=== PATIENT | male | born 1935 | race Caucasian/White ===

== ENCOUNTER 2017-02-10 16:25 | Emergency (ER) | payer MEDICARE, OTHER ==
[2017-02-10 16:52] VITALS: BP 161/92; PULSE 92; RESP 20; TEMP 97.5; O2SAT 98
[2017-02-10 16:55] LABS: BLOOD, URINE LARGE (NEG); GLUCOSE,URINE NEG (NEG); KETONE, URINE NEG (NEG); NITRITE,URINE NEG (NEG)
[2017-02-10] MEDS ORDERED: TAMS0.4C4 PO (16:56)
[2017-02-10] MEDS ORDERED: OMEP20TA PO (16:56)
[2017-02-10 17:02] LABS: POTASSIUM 3.3 MEQ/L (3.5-5.1)
[2017-02-10 17:05] LABS: BICARBONATE 28.8 MEQ/L (21.0-32.0)
[2017-02-10 17:10] LABS: METHOD OF COLLECTION CLEAN CATCH; RBC, URINE 100-200 /hpf (0-3); URINE COLOR YELLOW (YELLW/STRAW)
[2017-02-10 17:11] LABS: COMMENT (UR) CULT NOT INDICATED; CULTURE IF INDICATED CULT NOT INDICATED; SQUAMOUS EPITHELIAL CELL URINE 0-5 /hpf (0-5)
--- NOTE | 2017-02-10 17:39 | PD ---
HPI Chief Complaint: Complaint Time Seen by Provider: 16:30 Travel History International Travel<30 days: No Contact w/Intl Traveler<30days: No Traveled to known affect area: No History of Present Illness HPI The patient is a 81 year-old male who presents to the emergency department for urinary retention. The patient states he last used the bathroom and passed urine this morning at 9 AM. The patient had an outpatient procedure earlier today by his currency examiner, Dr. Combs, who performed an endoscopy. The patient states he has been unable to urinate since this morning , does have a history of benign prostatic hypertrophy and was recently placed on tamsulosin. The patient complains of lower abdominal pain and urge with inability to urinate. He denies any dysuria or hematuria. The patient denies any fever, chills, or sweats. He denies any associated nausea or vomiting. The symptoms are moderate, possibly exacerbated by a large prostate and endoscopy earlier today, and there are no current alleviating factors. PFSH Past Medical History GERD: Yes Past Surgical History Other Surgery: Yes (ANKLE, POLYPS) Social History Alcohol Use: No Tobacco Use: No Substance Use: No Allergies-Medications (Allergen,Severity, Reaction): Coded Allergies: No Known Allergies (Unverified , 02/10/17) Reported Meds & Prescriptions Reported Meds & Active Scripts Active Reported Tamsulosin (Tamsulosin HCl) 0.4 Mg Cap 0.4 Mg PO HS Omeprazole 20 Mg Tab 20 Mg PO DAILY Review of Systems Except as stated in HPI: all other systems reviewed are Neg Cardiovascular: No: Chest Pain or Discomfort Respiratory: No: Shortness of Breath Gastrointestinal: Positive: Abdominal Pain, No: Nausea, Vomiting Genitourinary: Positive: Pelvic Pain, Other (as noted in the history of present illness) Physical Exam Narrative GENERAL: Awake, alert, very pleasant 81-year-old male who appears his stated age and is in no acute respiratory distress. SKIN: Focused skin assessment warm/dry. HEAD: Atraumatic. Normocephalic. EYES: No injection or drainage. ENT: No nasal bleeding or discharge. Mucous membranes pink and moist. NECK: Trachea midline. No JVD. CARDIOVASCULAR: Regular rate and rhythm. No murmur appreciated. RESPIRATORY: No accessory muscle use. Clear to auscultation. Breath sounds equal bilaterally. GASTROINTESTINAL: Abdomen slightly distended bladder just inferior to the umbilicus. MUSCULOSKELETAL: No obvious deformities. No clubbing. No cyanosis. No edema. NEUROLOGICAL: Awake and alert. No obvious cranial nerve deficits. Motor grossly within normal limits. Normal speech. PSYCHIATRIC: Appropriate mood and affect; insight and judgment normal. Data Data Last Documented VS Vital Signs Date Time Temp Pulse Resp B/P (MAP) Pulse Ox O2 Delivery O2 Flow Rate FiO2 02/10/17 16:52 97.5 92 20 161/92 (115) 98 Orders Orders Urinalysis - C+S If Indicated (02/10/17 16:36) Basic Metabolic Panel (Bmp) (02/10/17 16:36) Urinary Catheter Insert/Apply (02/10/17 16:36) Cath, Leg Strap Ea (02/10/17 17:32) Bag, Leg 32oz Sterile Large Ea (02/10/17 17:32) Labs Laboratory Tests Test 02/10/17 16:40 02/10/17 16:45 Urine Collection Type CLEAN CATCH Urine Color YELLOW Urine Turbidity CLEAR Urine pH 6.0 Urine Specific [place] 1.008 Urine Protein NEG mg/dL Urine Glucose (UA) NEG mg/dL Urine Ketones NEG mg/dL Urine Occult Blood LARGE Urine Nitrite NEG Urine Bilirubin NEG Urine Leukocyte Esterase NEG Urine RBC 100-200 /hpf Urine WBC 6-8 /hpf Urine Squamous Epithelial Cells 0-5 /hpf Microscopic Urinalysis Comment CULT NOT INDICATED Urine Collection Time 16:40 Blood Urea Nitrogen 15 MG/DL Creatinine 0.77 MG/DL Random Glucose 98 MG/DL Calcium Level 8.7 MG/DL Sodium Level 140 MEQ/L Potassium Level 3.3 MEQ/L Chloride Level 104 MEQ/L Carbon Dioxide Level 28.8 MEQ/L Anion Gap 7 MEQ/L Estimat Glomerular Filtration Rate 97 ML/MIN MDM Medical Decision Making Medical Screen Exam Complete: Yes Emergency Medical Condition: Yes Medical Record Reviewed: Yes Interpretation(s) Laboratory Tests Test 02/10/17 16:40 02/10/17 16:45 Urine Collection Type CLEAN CATCH Urine Color YELLOW Urine Turbidity CLEAR Urine pH 6.0 Urine Specific [place] 1.008 Urine Protein NEG mg/dL Urine Glucose (UA) NEG mg/dL Urine Ketones NEG mg/dL Urine Occult Blood LARGE Urine Nitrite NEG Urine Bilirubin NEG Urine Leukocyte Esterase NEG Urine RBC 100-200 /hpf Urine WBC 6-8 /hpf Urine Squamous Epithelial Cells 0-5 /hpf Microscopic Urinalysis Comment CULT NOT INDICATED Urine Collection Time 16:40 Blood Urea Nitrogen 15 MG/DL Creatinine 0.77 MG/DL Random Glucose 98 MG/DL Calcium Level 8.7 MG/DL Sodium Level 140 MEQ/L Potassium Level 3.3 MEQ/L Chloride Level 104 MEQ/L Carbon Dioxide Level 28.8 MEQ/L Anion Gap 7 MEQ/L Estimat Glomerular Filtration Rate 97 ML/MIN Differential Diagnosis Differential diagnosis includes urinary retention, anesthesia side effect, benign prostatic hypertrophy, urethral stricture, UTI, acute renal failure. Narrative Course A bedside ultrasound was performed which did reveal a distended urinary bladder. Therefore, a Page catheter was placed and the patient had over 800 cc of output. UA was sent to lab which revealed 100-200 RBCs and 68 WBCs, most likely secondary to traumatic hematuria. Page catheter insertion, doubt infection. Creatinine is normal. The patient be discharged home on a leg bag with a Page catheter and is advised to follow-up with his urologist, Dr. [place]. The patient is already currently taking tamsulosin. The patient was reassessed at 5:30 PM, his symptoms had significantly improved after Page catheter placement. Patient is stable for outpatient follow-up. Diagnosis Primary Impression: Urinary retention Patient Instructions: General Instructions Additional Instructions: Please provide the patient a copy of his BMP and UA results at discharge. Page catheter with leg bag as directed. Follow-up with your urologist, call your urologist in the morning for an appointment. Return if symptoms worsen or progress. Med/Other Pt SpecificInfo: No Change to Meds Disposition: 01 DISCHARGE HOME Condition: Stable James Steen MD Feb 10, 2017 17:39
[2017-02-10 17:57] VITALS: BP 158/78
[2017-02-10] MEDS ORDERED: ASPI81CH CHEW (18:29)
== END 2017-02-10 18:10 | disposition home or self-care (01) ==
LOC: PHED 16:25
DX: R33.9 Retention of urine, unspecified (principal); K21.9 Gastro-esophageal reflux disease without esophagitis
CPT/HCPCS: 51702; 80048; 81001

== ENCOUNTER 2017-02-10 18:17 | Inpatient (IN) | payer MEDICARE ==
[2017-02-10] VITALS (10 sets, daily range): BP systolic 158–181; BP diastolic 79–91; PULSE 56–63; RESP 20–21; TEMP 97.8–98.2; O2SAT 94–99
[~2017-02-10 18:17] MED LIST: OMEP20TA PO; TAMS0.4C4 PO
[2017-02-10] MEDS ORDERED: ASPI81CH CHEW (18:29)
[2017-02-10] MEDS ORDERED: SODIUM CHLOR 0.9% 1000 ML INJ 1,000 ML IV ONE (18:31)
--- NOTE | 2017-02-10 18:49 | PD ---
HPI Chief Complaint: Neuro Symptoms/ Deficits Time Seen by Provider: 18:24 Travel History International Travel<30 days: No Contact w/Intl Traveler<30days: No Traveled to known affect area: No History of Present Illness HPI The patient is a 81 year-old male who presents to the emergency department via private vehicle for altered mental status. The patient was just recently seen in the emergency department for urinary obstruction and had a Page catheter placed, was discharged home alert and oriented 3. The states the patient got in the car and while they were driving home he suddenly became confused. The states that the patient cannot recall why he was in the emergency department are why he had a Page catheter placed. The brought the patient back to the emergency department. Upon arrival he keeps asking "am I having a stroke ", however, denies any other physical complaints except for his memory. The patient denies any weakness or numbness of the upper or lower extremities. He denies any dysarthria. The patient does have a history of GERD and benign prostatic hypertrophy. The patient did undergo an endoscopy earlier today by Dr. Combs. The patient denies any chest pain, shortness breath, nausea, vomiting, or abdominal pain. The patient was discharged at 6 PM, onset of symptoms were just after 6 PM. PFSH Past Medical History GERD: Yes Past Surgical History Other Surgery: Yes (ANKLE, POLYPS, ENDOSCOPY) Social History Alcohol Use: No Tobacco Use: No Substance Use: No Allergies-Medications (Allergen,Severity, Reaction): Coded Allergies: No Known Allergies (Unverified , 02/10/17) Reported Meds & Prescriptions Reported Meds & Active Scripts Active Reported Aspirin 81 Mg Chew 81 Mg CHEW DAILY Tamsulosin (Tamsulosin HCl) 0.4 Mg Cap 0.4 Mg PO HS Omeprazole 20 Mg Tab 20 Mg PO DAILY Review of Systems ROS Limitations: Altered Mental Status Except as stated in HPI: all other systems reviewed are Neg HENT: No: Lightheadedness Cardiovascular: No: Chest Pain or Discomfort Respiratory: No: Shortness of Breath Gastrointestinal: No: Nausea, Vomiting, Abdominal Pain Genitourinary: Positive: Other (urinary retention, status post Page catheter insertion earlier today) Musculoskeletal: No: Weakness Neurologic: Positive: Change in Mentation, No: Weakness, Headache, Slurred Speech, Paresthesia, Sensory Disturbance Physical Exam Narrative GENERAL: Awake, alert, pleasant 81-year-old male appears his stated age and is in no acute respiratory distress. SKIN: Focused skin assessment warm/dry. HEAD: Atraumatic. Normocephalic. EYES: Pupils equal and round. Pupils are 3 mm bilateral and reactive. EOMs are intact. He is able to see fingers at a distance of 2 feet without difficulty. ENT: No nasal bleeding or discharge. Mucous membranes pink and moist. NECK: Trachea midline. No JVD. CARDIOVASCULAR: Regular rate and rhythm. No murmur appreciated. RESPIRATORY: No accessory muscle use. Clear to auscultation. Breath sounds equal bilaterally. GASTROINTESTINAL: Abdomen soft, non-tender, nondistended. Page catheter with leg bag in place. MUSCULOSKELETAL: No obvious deformities. No clubbing. No cyanosis. No edema. NEUROLOGICAL: Awake and alert. No obvious cranial nerve deficits. Motor grossly within normal limits. Normal speech. No drift of the upper or lower extremities. Sensation is symmetric on the face, arms, and legs. Finger to nose is normal. Omho-fr-ntpe is normal. Patient is oriented to name and date of but does not know the month, year, or animal cytologist. The patient is able to tell me the name of his but does not know her date of or the anniversary date. PSYCHIATRIC: Appropriate mood and affect; insight and judgment normal. Data Data Last Documented VS Vital Signs Date Time Temp Pulse Resp B/P (MAP) Pulse Ox O2 Delivery O2 Flow Rate FiO2 02/10/17 19:32 56 20 179/79 (112) 99 2.00 02/10/17 19:02 Nasal Cannula 02/10/17 18:23 97.8 Orders Orders Cath For Specimen (02/10/17 18:31) Neuro Checks Q2HX12,Q4H (02/10/17 18:31) Nursing Bedside Swallow Assess .ONCE (02/10/17 18:31) Activity Bed Rest (02/10/17 18:31) Diet Npo (02/10/17 Dinner) Prothrombin Time / Inr (Pt) (02/10/17 18:31) Act Partial Throm Time (Ptt) (02/10/17 18:31) Complete Blood Count With Diff (02/10/17 18:31) Basic Metabolic Panel (Bmp) (02/10/17 18:31) Fibrinogen (02/10/17 18:31) Creatine Kinase (Cpk) (02/10/17 18:31) Troponin I (02/10/17 18:31) Ua Includes Microscopic (02/10/17 18:31) Drug Screen, Random Urine (02/10/17 18:31) Type And Screen (02/10/17 18:31) Ct Brain W/O Iv Contrast(Rout) (02/10/17 ) Cta Brain W Iv Contrast W 3d (02/10/17 18:31) Cta Neck W Iv Contrast W 3d (02/10/17 18:31) Chest, Single Ap (02/10/17 ) Electrocardiogram (02/10/17 ) Consult Neurology (02/10/17 18:31) Sodium Chlor 0.9% 1000 Ml Inj (Ns 1000 M (02/10/17 18:31) Blood Glucose (02/10/17 18:31) Ecg Monitoring (02/10/17 18:31) Iv Access Insert/Monitor (02/10/17 18:31) NPO (02/10/17 18:31) Oximetry (02/10/17 18:31) Oxygen Administration (02/10/17 18:31) Resp Oxygen Seven C Titrat 1-4 L (02/10/17 18:31) (Hub Use Only)Inp Phy Cons/Ref (02/10/17 ) Iodixanol 320 Inj (Rad Ct) (Visipaque 32 (02/10/17 19:01) ^ Call Pharmacy (02/10/17 19:19) Nih Stroke Scale - Nihss .ONCE (02/10/17 19:19) Urinary Catheter Insert/Apply (02/10/17 19:19) Anticoagulant Alert (02/10/17 19:19) ^ Post Infusion Restrictions (02/10/17 19:19) ^ Medication Alert (02/10/17 19:19) Vital Signs (Adult) .As directed (02/10/17 19:19) Notify Dr: Blood Pressure (02/10/17 19:19) ^ Medication Alert (02/10/17 19:19) Alteplase Bolus (Activase Bolus) (02/10/17 19:30) Alteplase Drip (Activase Drip) (02/10/17 19:30) Sodium Chloride 0.9% Inj (Ns Inj) (02/10/17 19:30) Misc Nursing Information (02/10/17 19:30) Resp Oxygen Seven C Titrat 1-4 L (02/10/17 ) Ct Brain W/O Iv Contrast(Rout) (02/11/17 ) Admit Order (Ed Use Only) (02/10/17 ) Business Continuity Global Director / Telemetry CASEY.Q8H (02/10/17 19:37) Diet Npo (02/11/17 Breakfast) Activity Bed Rest (02/10/17 19:37) Labs Laboratory Tests Test 02/10/17 18:30 02/10/17 19:05 White Blood Count 5.6 TH/MM3 Red Blood Count 5.12 MIL/MM3 Hemoglobin 15.4 GM/DL Hematocrit 47.0 % Mean Corpuscular Volume 91.7 FL Mean Corpuscular Hemoglobin 30.2 PG Mean Corpuscular Hemoglobin Concent 32.9 % Red Cell Distribution Width 12.4 % Platelet Count 226 TH/MM3 Mean Platelet Volume 7.4 FL Neutrophils (%) (Auto) 67.8 % Lymphocytes (%) (Auto) 21.9 % Monocytes (%) (Auto) 7.7 % Eosinophils (%) (Auto) 1.8 % Basophils (%) (Auto) 0.8 % Neutrophils # (Auto) 3.9 TH/MM3 Lymphocytes # (Auto) 1.2 TH/MM3 Monocytes # (Auto) 0.4 TH/MM3 Eosinophils # (Auto) 0.1 TH/MM3 Basophils # (Auto) 0.0 TH/MM3 CBC Comment DIFF FINAL Differential Comment Erythrocyte Sedimentation Rate 1 mm/hr Prothrombin Time 10.8 SEC Prothromb Time International Ratio 1.0 RATIO Activated Partial Thromboplast Time 30.3 SEC Fibrinogen 280 mg/dL Blood Urea Nitrogen 14 MG/DL Creatinine 0.70 MG/DL Random Glucose 92 MG/DL Calcium Level 8.8 MG/DL Sodium Level 139 MEQ/L Potassium Level 4.0 MEQ/L Chloride Level 104 MEQ/L Carbon Dioxide Level 27.9 MEQ/L Anion Gap 7 MEQ/L Estimat Glomerular Filtration Rate 109 ML/MIN Total Creatine Kinase 213 U/L Troponin I LESS THAN 0.02 NG/ML Urine Color NONE Urine Turbidity CLEAR Urine pH 7.5 Urine Specific [place] 1.014 Urine Protein NEG mg/dL Urine Glucose (UA) NEG mg/dL Urine Ketones NEG mg/dL Urine Occult Blood LARGE Urine Nitrite NEG Urine Bilirubin NEG Urine Leukocyte Esterase NEG Urine RBC 4-9 /hpf Urine Squamous Epithelial Cells 0-5 /hpf Urine Opiates Screen NEG Urine Barbiturates Screen NEG Urine Amphetamines Screen NEG Urine Benzodiazepines Screen NEG Urine Cocaine Screen NEG Urine Cannabinoids Screen NEG MDM Medical Decision Making Medical Screen Exam Complete: Yes Emergency Medical Condition: Yes Medical Record Reviewed: Yes Interpretation(s) EKG reveals sinus bradycardia with sinus arrhythmia. Last Impressions Head CTA 02/10/17 1831 Signed Impressions: Service Date/Time: Friday, February 10, 2017 18:34 - CONCLUSION: Unremarkable study. Pedro Peralta MD Head CT 02/10/17 0000 Signed Impressions: Service Date/Time: Friday, February 10, 2017 18:34 - CONCLUSION: Unremarkable study. Pedro Peralta MD Laboratory Tests Test 02/10/17 18:30 02/10/17 19:05 White Blood Count 5.6 TH/MM3 Red Blood Count 5.12 MIL/MM3 Hemoglobin 15.4 GM/DL Hematocrit 47.0 % Mean Corpuscular Volume 91.7 FL Mean Corpuscular Hemoglobin 30.2 PG Mean Corpuscular Hemoglobin Concent 32.9 % Red Cell Distribution Width 12.4 % Platelet Count 226 TH/MM3 Mean Platelet Volume 7.4 FL Neutrophils (%) (Auto) 67.8 % Lymphocytes (%) (Auto) 21.9 % Monocytes (%) (Auto) 7.7 % Eosinophils (%) (Auto) 1.8 % Basophils (%) (Auto) 0.8 % Neutrophils # (Auto) 3.9 TH/MM3 Lymphocytes # (Auto) 1.2 TH/MM3 Monocytes # (Auto) 0.4 TH/MM3 Eosinophils # (Auto) 0.1 TH/MM3 Basophils # (Auto) 0.0 TH/MM3 CBC Comment DIFF FINAL Differential Comment Prothrombin Time 10.8 SEC Prothromb Time International Ratio 1.0 RATIO Activated Partial Thromboplast Time 30.3 SEC Blood Urea Nitrogen 14 MG/DL Creatinine 0.70 MG/DL Random Glucose 92 MG/DL Calcium Level 8.8 MG/DL Sodium Level 139 MEQ/L Potassium Level 4.0 MEQ/L Chloride Level 104 MEQ/L Carbon Dioxide Level 27.9 MEQ/L Anion Gap 7 MEQ/L Estimat Glomerular Filtration Rate 109 ML/MIN Total Creatine Kinase 213 U/L Troponin I LESS THAN 0.02 NG/ML Urine Color NONE Urine Turbidity CLEAR Urine pH 7.5 Urine Specific [place] 1.014 Urine Protein NEG mg/dL Urine Glucose (UA) NEG mg/dL Urine Ketones NEG mg/dL Urine Occult Blood LARGE Urine Nitrite NEG Urine Bilirubin NEG Urine Leukocyte Esterase NEG Urine RBC 4-9 /hpf Urine Squamous Epithelial Cells 0-5 /hpf Urine Barbiturates Screen NEG Urine Amphetamines Screen NEG Urine Benzodiazepines Screen NEG Urine Cannabinoids Screen NEG Differential Diagnosis Differential diagnosis includes TIA, CVA, intracranial hemorrhage, delirium, UTI , hyponatremia, transient global amnesia, anesthetic side effect. Narrative Course IV was established, labs are drawn and sent, the patient was placed on cardiac telemetry monitoring and continuous pulse oximetry monitoring. A stroke alert was called and I discussed the patient with the on-call neurologist, Dr. Urbina , who recommends CT of the brain and CTA. Therefore, stat CT and CTA of the brain were obtained. I discussed the patient with the radiologist, Dr. Peralta , at 6:58 PM who states the initial CT of the brain is negative. CT angiograms were pending at that time. I had a discussion with the patient at [address] results being negative for hemorrhage. I do discussion with the regarding TPA, she would like to discuss that possibility with her daughter. I had a discussion with the patient who states "I guess ", however, he is oriented to name, date of , and location. However, he cannot tell me the month, year, his 's birthday, or his wedding anniversary date. A call was placed to Dr. Combs in regards to EGD findings for possible hemorrhage, awaiting callback from Dr. Haynes. 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 He does recommend Protonix 40 mg intravenously twice a day and Carafate 3 times a day orally if the patient is able swallow without aspiration. I do discussion with the once again after discussion with the daughter they would prefer TPA. Therefore, I discussed the patient once again with the neurologist, Dr. Urbina , who agrees with TPA and admission to the website optimization strategist. I evaluated the patient once again at 7:25 PM, just prior to TPA administration. The patient still is unable to tell me the month or year of the top of his head, was able to tell me his state of but not the anniversary. However, he still delayed in answering other questions. After discussion with the patient's once again it was agreed the patient would receive TPA. The patient was reevaluated at 9:15 PM. The patient's symptoms had significantly improved, he was able to name the month, day the week, date, and his 's birthday. He did have slight hesitation and answers, however, his answers are correct. The patient's blood pressure was a systolic in the 160s and diastolic in the 70s. Therefore, continuous monitoring was performed but no medications were administered. The patient then went to MRI. The patient's symptoms appeared to be significantly improving, possible TIA versus CVA. Critical Care Narrative Aggregate critical care time was 45 minutes. Time to perform other separately billable procedures was not included in the critical care time. My time did not include minutes spent treating any other patients simultaneously or on activities that did not directly contribute to the patient's treatment. The services I provided to this patient were to treat and/or prevent clinically significant deterioration that could result in: Ischemia, hemorrhage, neurologic deficit, . I provided critical care services requiring my management, as noted below: Chart data review, documentation time, medication orders and management, vital sign assessments/reviewing monitor data, ordering and reviewing lab tests, ordering and interpreting/reviewing x-rays and diagnostic studies, care of the patient and discussion of the patient with the admitting physicians. Physician Communication Physician Communication I discussed the patient with the website optimization strategist, Dr. Fletcher, who agrees with admission to [facility] at [facility]. Diagnosis Primary Impression: CVA (cerebral vascular accident) Qualified Codes: I63.9 - Cerebral infarction, unspecified Additional Impression: Altered mental status Qualified Codes: R41.82 - Altered mental status, unspecified Admitting Information Admitting Physician Requests: Admit Condition: Stable James Steen MD Feb 10, 2017 18:49
--- NOTE | 2017-02-10 19:00 | RADRPT ---
EXAM DATE/TIME: 02/10/2017 18:34 [facility] COMPARISON: No previous studies available for comparison. INDICATIONS : Stroke alert. Confusion. New onset. RADIATION DOSE: 61.40 CTDIvol (mGy) This report was called by myself to Dr. Steen at 18: 57 hours MEDICAL HISTORY : Non-responsive. SURGICAL HISTORY : Non-responsive. ENCOUNTER: Initial ACUITY: 1 day PAIN SCALE: 0/10 LOCATION: cranial TECHNIQUE: Multiple contiguous axial images were obtained of the head. Using automated exposure control and adj ustment of the mA and/or kV according to patient size, radiation dose was kept as low as reasonably a chievable to obtain optimal diagnostic quality images. DICOM format image data is available electro nically for review and comparison. FINDINGS: There is no evidence for intracranial hemorrhage, mass effect, mass lesions, edema, or extra-axial fl uid collections. The visualized bony structures appear intact. The ventricles are normal size for t he patient's age. There are no signs of acute infarction for technique. CONCLUSION: Unremarkable study. KCorinne Peralta MD on February 10, 2017 at 18:56 Board Certified Radiologist. This report was verified electronically.
[2017-02-10] MEDS ORDERED: IODIXANOL 320 MG/ML 10 ML VIAL (for Rad CT) IVCONTRAST ONE (19:01)
[2017-02-10 19:05] LABS: AUTOMATED NEUTROPHIL # 3.9 TH/MM3 (1.8-7.7); BASOPHIL % 0.8 % (0.0-2.0); EOSINOPHIL # 0.1 TH/MM3 (0-0.4); EOSINOPHIL % 1.8 % (0.0-4.0); HEMO FLAGS DIFF FINAL; LYMPH % 21.9 % (9.0-44.0); LYMPHOCYTE # 1.2 TH/MM3 (1.0-4.8); MEAN CELL VOLUME 91.7 FL (80.0-100.0); MEAN CORPUSCULAR HEMOGLOBIN 30.2 PG (27.0-34.0); MEAN CORPUSCULAR HGB CONC 32.9 % (32.0-36.0); MONO % 7.7 % (0.0-8.0); NEUT % 67.8 % (16.0-70.0); PLATELET COUNT 226 TH/MM3 (150-450); RED BLOOD COUNT 5.12 MIL/MM3 (4.50-5.90); RED CELL DISTRIBUTION WIDTH 12.4 % (11.6-17.2); WHITE BLOOD COUNT 5.6 TH/MM3 (4.0-11.0)
[2017-02-10 19:14] LABS: BLOOD, URINE LARGE (NEG); GLUCOSE,URINE NEG (NEG); KETONE, URINE NEG (NEG); NITRITE,URINE NEG (NEG); PH, URINE 7.5 (5.0-8.5)
[2017-02-10 19:15] LABS: CHLORIDE 104 MEQ/L (98-107); SODIUM (NA) 139 MEQ/L (136-145)
[2017-02-10 19:18] LABS: ANION GAP 7 MEQ/L (5-15); APTT (PATIENT) 30.3 SEC (24.3-30.1); BICARBONATE 27.9 MEQ/L (21.0-32.0); BLOOD UREA NITROGEN 14 MG/DL (7-18); PROTHROMBIN TIME - PATIENT 10.8 SEC (9.8-11.6)
[2017-02-10 19:21] LABS: GLOMERULAR FILTRATION RATE 109 ML/MIN (>89)
--- NOTE | 2017-02-10 19:22 | RADRPT ---
EXAM DATE/TIME: 02/10/2017 18:34 [facility] COMPARISON: No previous studies available for comparison. INDICATIONS : Stroke alert. Confusion. New onset. IV CONTRAST: 75 cc Visipaque (iodixanol) IV RADIATION DOSE: 43.11 CTDIvol (mGy) MEDICAL HISTORY : Non-responsive. SURGICAL HISTORY : Non-responsive. ENCOUNTER: Initial ACUITY: 1 day PAIN SCALE: 0/10 LOCATION: cranial TECHNIQUE: Volumetric scanning was performed using a multi-row detector CT scanner. The data was post processed with a variety of visualization algorithms including full volume maximum intensity projection, multi -planar sliding thin slab reformation, curved planar reformation, and surface rendering techniques. Using automated exposure control and adjustment of the mA and/or kV according to patient size, radiat ion dose was kept as low as reasonably achievable to obtain optimal diagnostic quality images. DICO M format image data is available electronically for review and comparison. FINDINGS: No significant vascular malformations, vessel truncation or aneurysmal dilatations are seen. CONCLUSION: Unremarkable study. Pedro Peralta MD on February 10, 2017 at 19:17 Board Certified Radiologist. This report was verified electronically.
[2017-02-10 19:24] LABS: CREATINE KINASE 213 U/L (39-308)
--- NOTE | 2017-02-10 19:27 | RADRPT ---
EXAM DATE/TIME: 02/10/2017 18:59 [facility] COMPARISON: No previous studies available for comparison. INDICATIONS : Stroke alert. MEDICAL HISTORY : Unobtainable. SURGICAL HISTORY : Unobtainable. ENCOUNTER: Initial ACUITY: 1 day PAIN SCORE: Non-responsive. LOCATION: Bilateral chest FINDINGS: Focal consolidation is not seen, however there is mild prominence of the interstitial markings most l ikely chronic. Heart and mediastinum are unremarkable for technique. CONCLUSION: Mild case of chronic interstitial process. KCorinne Peralta MD on February 10, 2017 at 19:25 Board Certified Radiologist. This report was verified electronically.
[2017-02-10 19:29] LABS: SQUAMOUS EPITHELIAL CELL URINE 0-5 /hpf (0-5)
[2017-02-10] MEDS ORDERED: MISCELLANEOUS NURSING INFORMATION XX PRN (19:30)
[2017-02-10] MEDS ORDERED: ALTEPLASE BOLUS 9 MG/9 ML SYR IV ONE (19:30)
[2017-02-10] MEDS ORDERED: ALTEPLASE DRIP 81 MG in SYRINGE/BAG 1 EA IV ONE (19:30)
[2017-02-10] MEDS ORDERED: SODIUM CHLORIDE 0.9% 50 ML BAG IVF ONE (19:30)
--- NOTE | 2017-02-10 19:43 | RADRPT ---
EXAM DATE/TIME: 02/10/2017 18:34 [facility] COMPARISON: No previous studies available for comparison. INDICATIONS : Stroke alert. Confusion. New onset. IV CONTRAST: 75 cc Visipaque (iodixanol) IV RADIATION DOSE: 43.11 CTDIvol (mGy) MEDICAL HISTORY : Non-responsive. SURGICAL HISTORY : Non-responsive. ENCOUNTER: Initial ACUITY: 1 day PAIN SCALE: 0/10 LOCATION: neck Elevated flow velocities and ICA/CCA ratios have been found to correlate with increased degrees of vessel stenosis, calculated as percentage of diameter relative to a normal segment of distal ICA/CCA. TECHNIQUE: Volumetric scanning was performed using a multirow detector CT scanner. The data was post processed with a variety of visualization algorithms including full-volume maximum intensity projection, multip lanar sliding thin-slab reformation, curved-planar reformation, and surface-rendering techniques. Us ing automated exposure control and adjustment of the mA and/or kV according to patient size, radiatio n dose was kept as low as reasonably achievable to obtain optimal diagnostic quality images. DICOM f ormat image data is available electronically for review and comparison. FINDINGS: AORTIC ARCH: There is a three-vessel origin of the great vessels from the aorta. No evidence of ostial narrowing. RIGHT CAROTID: The common carotid artery is intact. The carotid bulb has a normal configuration without ulceration o r narrowing. The internal carotid artery lumen is smooth without stenosis. The external carotid rut ry is intact. The right carotid artery is somewhat tortuous and on the reconstructed images is a ques tionable filling defect in the ICA which is artifactually created and not reproduced on the axial seq uences. LEFT CAROTID: The common carotid artery is intact. The carotid bulb has a normal configuration without ulceration or narrowing. The internal carotid artery lumen is smooth without stenosis. The external carotid ar jerrell is intact. VERTEBRALS: The vertebral arteries have a symmetric diameter. No stenotic lesions are seen. CONCLUSION: Unremarkable study without any significant stenosis. Pedro Peralta MD on February 10, 2017 at 19:39 Board Certified Radiologist. This report was verified electronically.
[2017-02-10] MEDS ORDERED: PANTOPRAZOLE SODIUM 40 MG VIAL IV PUSH ONE (19:45)
--- NOTE | 2017-02-10 20:56 | PD.CONS ---
History of Present Illness Service Neurology Consult Requested By er Reason for Consult stroke alert Primary Care Physician Danika Fierro MD History of Present Illness 81 year-old m tx'd from po er for post-tpa tx. [place] [facility] [place]/gu compliants post-scope at his gi's office. he was being dc'd from er when he suddenly became confused. had difficulty remembering and not right per er doc. their was no clear explanation for it based on vitals and labs. the decision was made for iv tpa as it could represent a focal infarct. this has never happened to him before. has had previous scopes done without problem. feels well this am. has poor recollection of exact details of what occurred in er. takes aspirin qd. no hx of tia/stroke. no hx of afib. Review of Systems as above and admit hp Past Family Social History Allergies: Coded Allergies: No Known Allergies (Unverified , 02/10/17) Past Medical History GERD Past Surgical History Ankle surgery Endoscopy with polypectomy removal Reported Medications Reported Meds & Active Scripts Active Reported Aspirin 81 Mg Chew 81 Mg CHEW DAILY Tamsulosin (Tamsulosin HCl) 0.4 Mg Cap 0.4 Mg PO HS Omeprazole 20 Mg Tab 20 Mg PO DAILY Family History Family history significant for coronary artery disease or malignancy Social History Negative for tobacco, alcohol, or illicit drug abuse Review of Systems All other ROS: ROS reviewed as documented in chart Past Family Social History Allergies: Coded Allergies: No Known Allergies (Unverified , 02/10/17) Active Ordered Medications Current Medications Medications (Trade) Dose Ordered Sig/Richardson Route Start Time Stop Time Status Last Admin Sodium Chloride 1,000 ml @ 70 mls/hr [id number] ONCE IV 02/10/17 18:31 02/11/17 08:48 02/10/17 19:54 Miscellaneous Information No Heparin, Warfarin, Aspir... UNSCH PRN XX 02/10/17 19:30 02/11/17 19:29 Exam I&O / VS 02/10/17 02/10/17 02/11/17 15:00 23:00 07:00 Intake Total 81 ml Balance 81 ml Intake IV Total 81 ml Vital Signs Date Time Temp Pulse Resp B/P (MAP) Pulse Ox O2 Delivery O2 Flow Rate FiO2 02/10/17 19:32 56 20 179/79 (112) 99 2.00 02/10/17 19:02 58 20 167/87 (113) 98 Nasal Cannula 2.00 02/10/17 18:39 Nasal Cannula 2.00 02/10/17 18:39 96 02/10/17 18:30 96 Nasal Cannula 2.00 02/10/17 18:30 96 2.00 02/10/17 18:23 97.8 60 20 172/91 (118) 97 General: Alert and Oriented, No acute distress Eye: EOMI Respiratory: Non-labored respirations Neurologic: Alert, Normal sensory, Normal motor, No focal defects, CN II-XII intact, Normal DTR's Psychiatric: Cooperative, Appropriate mood & affect Exam Comments ox 3, pres Trump, follows, able to name pcp. articulate, able to name, eomi, ou 3mm sluggish surgical cataract extraction changes noted, minimal reduced rt nlf but smile sym, no drift, nihss 0 Review/Management Diagnosis/Plan: (1) Acute memory impairment ICD Codes: R41.3 - Other amnesia Status: Acute Plan: possible temporal/thalamic infarct vs sz vs htn/age s/p iv tpa recs post tpa protocol bp <180/100 statin no blood thinners x 24 hrs post tpa f/u ct brain at 24 hrs f/u eeg will start plavix in am if ct negative ok for 5th floor [facility] today from neurology (2) BPH (benign prostatic hyperplasia) ICD Codes: N40.0 - Benign prostatic hyperplasia without lower urinary tract symptoms Status: Chronic (3) GERD (gastroesophageal reflux disease) ICD Codes: K21.9 - Gastro-esophageal reflux disease without esophagitis Status: Chronic Aris Urbina MD Feb 10, 2017 20:56
--- NOTE | 2017-02-10 22:18 | RADRPT ---
EXAM DATE/TIME: 02/10/2017 21:56 [facility] COMPARISON: No previous studies available for comparison. INDICATIONS : CVA. MEDICAL HISTORY : Gastroesophageal reflux disease. SURGICAL HISTORY : Right leg. ENCOUNTER: Subsequent ACUITY: 1 day PAIN SCORE: 3/10 LOCATION: cranial TECHNIQUE: Multiplanar, multisequence MRI of the brain was performed without contrast. FINDINGS: There is no evidence for intracranial hemorrhage, mass effect, mass lesions, edema, or extra-axial fl uid collections. There are no signs of acute infarction for technique. The diffusion portion is unre markable. Slight degree of brain atrophy is seen. Slight periventricular white matter changes are see n nonspecific mostly consistent with chronic small vessel ischemic changes. CONCLUSION: Chronic atrophic and small vessel ischemic changes without any evidence for acute hem orrhage or mass effect. Pedro Peralta MD on February 10, 2017 at 22:15 Board Certified Radiologist. This report was verified electronically.
--- NOTE | 2017-02-10 23:14 | HHI.HP ---
HPI Service Critical Care Medicine Primary Care Physician Danika Fierro MD Admission Diagnosis stroke alert, CVA, altered mental status Diagnosis: Travel History International Travel<30 Days: No Contact w/Intl Traveler <30 Da: No Traveled to Known Affected Are: No History of Present Illness 81 year-old right-handed male presented to emergency department at [facility] via private vehicle for altered mental status. The patient was just recently seen in the emergency department for urinary obstruction and had a Page catheter placed, was discharged home alert and oriented 3. The patient's the patient got in the car and while they were driving home he suddenly became confused. The states that the patient cannot recall why he was in the emergency department are why he had a Page catheter placed. The brought the patient back to the emergency department. Upon arrival he kept asking "am I having a stroke ", however, denied any other physical complaints except for his memory. The patient denies any weakness or numbness of the upper or lower extremities. He denies any dysarthria. The patient does have a history of GERD and benign prostatic hypertrophy. The patient did undergo an endoscopy earlier today by Dr. Combs. The patient denies any chest pain, shortness breath, nausea, vomiting, or abdominal pain. The patient was discharged at 6 PM, onset of symptoms were just after 6 PM. Patient was evaluated by a neurologist on: Decision was made to treat patient with the TPA infusion. Review of Systems Constitutional: DENIES: Diaphoretic episodes, Fatigue, Fever, Weight gain, Weight loss, Chills, Dizziness, Change in appetite, Night Sweats Endocrine: DENIES: Heat/cold intolerance, Polydipsia, Polyuria, Polyphagia Eyes: DENIES: Blurred vision, Diplopia, Eye inflammation, Eye pain, Vision loss , Photosensitivity, Double Vision Ears, nose, mouth, throat: DENIES: Tinnitus, Hearing loss, Vertigo, Nasal discharge, Oral lesions, Throat pain, Hoarseness, Ear Pain, Running Nose, Epistaxis, Sinus Pain, Toothache, Odynophagia Respiratory: DENIES: Apneas, Cough, Snoring, Wheezing, Hemoptysis, Sputum production, Shortness of breath Cardiovascular: DENIES: Chest pain, Palpitations, Syncope, Dyspnea on Exertion , PND, Lower Extremity Edema, Orthopnea, Claudication Gastrointestinal: DENIES: Abdominal pain, Black stools, Bloody stools, Constipation, Diarrhea, Nausea, Vomiting, Difficulty Swallowing, Anorexia Genitourinary: DENIES: Sexual dysfunction, Urinary frequency, Urinary incontinence, Urgency, Hematuria, Dysuria, Nocturia, Penile Discharge, Testicular Pain, Testicular Swelling Musculoskeletal: DENIES: Joint pain, Muscle aches, Stiffness, Joint Swelling, Back pain, Neck pain Integumentary: DENIES: Abnormal pigmentation, Nail changes, Pruritus, Rash Hematologic/lymphatic: DENIES: Bruising, Lymphadenopathy Immunologic/allergic: DENIES: Eczema, Urticaria Neurologic: DENIES: Abnormal gait, Headache, Localized weakness, Paresthesias, Seizures, Speech Problems, Tremor, Poor Balance Psychiatric: COMPLAINS OF: Confusion, DENIES: Anxiety, Mood changes, Depression , Hallucinations, Agitation, Suicidal Ideation, Homicidal Ideation, Delusions Past Family Social History Allergies: Coded Allergies: No Known Allergies (Unverified , 02/10/17) Past Medical History GERD Past Surgical History Ankle surgery Endoscopy with polypectomy removal Reported Medications Reported Meds & Active Scripts Active Reported Aspirin 81 Mg Chew 81 Mg CHEW DAILY Tamsulosin (Tamsulosin HCl) 0.4 Mg Cap 0.4 Mg PO HS Omeprazole 20 Mg Tab 20 Mg PO DAILY Active Ordered Medications Current Medications Medications (Trade) Dose Ordered Sig/Richardson Route PRN Reason Start Time Stop Time Status Last Admin Dose Admin Sodium Chloride 1,000 ml @ 70 mls/hr [id number] ONCE IV 02/10/17 18:31 02/11/17 08:48 02/10/17 19:54 Miscellaneous Information No Heparin, Warfarin, Aspir... UNSCH PRN XX SEE DOSE INSTRUCTIONS 02/10/17 19:30 02/11/17 19:29 Family History Family history significant for coronary artery disease or malignancy Social History Negative for tobacco, alcohol, or illicit drug abuse Physical Exam Vital Signs Vital Signs Date Time Temp Pulse Resp B/P (MAP) Pulse Ox O2 Delivery O2 Flow Rate FiO2 02/10/17 22:25 63 20 165/84 (111) 98 02/10/17 22:05 63 20 172/91 (118) 99 Nasal Cannula 2.00 02/10/17 21:05 56 20 169/84 (112) 99 2.00 02/10/17 20:05 58 20 158/79 (105) 99 Nasal Cannula 2.00 02/10/17 20:00 58 20 98 Nasal Cannula 2.00 02/10/17 19:32 56 20 179/79 (112) 99 2.00 02/10/17 19:02 58 20 167/87 (113) 98 Nasal Cannula 2.00 02/10/17 18:39 Nasal Cannula 2.00 02/10/17 18:39 96 02/10/17 18:30 96 Nasal Cannula 2.00 02/10/17 18:30 96 2.00 02/10/17 18:23 97.8 60 20 172/91 (118) 97 Physical Exam GENERAL: Well-nourished, well-developed patient. SKIN: Warm and dry. HEAD: Normocephalic. EYES: No scleral icterus. No injection or drainage. NECK: Supple, trachea midline. No JVD or lymphadenopathy. CARDIOVASCULAR: Regular rate and rhythm without murmurs, gallops, or rubs. RESPIRATORY: Breath sounds equal bilaterally. No accessory muscle use. GASTROINTESTINAL: Abdomen soft, non-tender, nondistended. MUSCULOSKELETAL: No cyanosis, or edema. BACK: Nontender without obvious deformity. NEURO EXAM: GCS: M 6 V 5 E 4 Mental Status: The patient is alert and oriented to person, place, and time with normal speech. Cranial Nerves: Visual acuity intact bilaterally. Visual garza normal in all quadrants. Pupils are round, reactive to light. Extraocular movements are intact without ptosis. Hearing is normal bilaterally. Voice is normal. Tongue protrudes midline and moves symmetrically. Reflexes: Biceps, patellar, and Achilles are 2/4 bilaterally. No clonus. Sensation: Sensation is intact bilaterally to pain and light touch. Two-point discrimination is intact. Motor: Good muscle tone. Strength is 5/5 bilaterally. Laboratory Laboratory Tests Test 02/10/17 18:30 02/10/17 19:05 02/10/17 22:20 White Blood Count 5.6 Red Blood Count 5.12 Hemoglobin 15.4 Hematocrit 47.0 Mean Corpuscular Volume 91.7 Mean Corpuscular Hemoglobin 30.2 Mean Corpuscular Hemoglobin Concent 32.9 Red Cell Distribution Width 12.4 Platelet Count 226 Mean Platelet Volume 7.4 Neutrophils (%) (Auto) 67.8 Lymphocytes (%) (Auto) 21.9 Monocytes (%) (Auto) 7.7 Eosinophils (%) (Auto) 1.8 Basophils (%) (Auto) 0.8 Neutrophils # (Auto) 3.9 Lymphocytes # (Auto) 1.2 Monocytes # (Auto) 0.4 Eosinophils # (Auto) 0.1 Basophils # (Auto) 0.0 CBC Comment DIFF FINAL Differential Comment Erythrocyte Sedimentation Rate 1 Prothrombin Time 10.8 Prothromb Time International Ratio 1.0 Activated Partial Thromboplast Time 30.3 Fibrinogen 280 Blood Urea Nitrogen 14 Creatinine 0.70 Random Glucose 92 Calcium Level 8.8 Sodium Level 139 Potassium Level 4.0 Chloride Level 104 Carbon Dioxide Level 27.9 Anion Gap 7 Estimat Glomerular Filtration Rate 109 Total Creatine Kinase 213 Troponin I LESS THAN 0.02 Urine Color NONE Urine Turbidity CLEAR Urine pH 7.5 Urine Specific [place] 1.014 Urine Protein NEG Urine Glucose (UA) NEG Urine Ketones NEG Urine Occult Blood LARGE Urine Nitrite NEG Urine Bilirubin NEG Urine Leukocyte Esterase NEG Urine RBC 4-9 Urine Squamous Epithelial Cells 0-5 Urine Opiates Screen NEG Urine Barbiturates Screen NEG Urine Amphetamines Screen NEG Urine Benzodiazepines Screen NEG Urine Cocaine Screen NEG Urine Cannabinoids Screen NEG Thyroid Stimulating Hormone 3rd Gen 1.430 Result Diagram: 02/10/17 1830 02/10/17 1830 Imaging Last 24 hours Impressions Neck CTA 02/10/17 183 Signed Impressions: Service Date/Time: Friday, February 10, 2017 18:34 - CONCLUSION: Unremarkable study without any significant stenosis. Pedro Peralta MD Head CTA 02/10/17 183 Signed Impressions: Service Date/Time: Friday, February 10, 2017 18:34 - CONCLUSION: Unremarkable study. Pedro Peralta MD Head CT 02/10/17 0000 Signed Impressions: Service Date/Time: Friday, February 10, 2017 18:34 - CONCLUSION: Unremarkable study. Pedro Peralta MD Chest X-Ray 02/10/17 0000 Signed Impressions: Service Date/Time: Friday, February 10, 2017 18:59 - CONCLUSION: Mild case of chronic interstitial process. Pedro Peralta MD Brain MRI 02/10/17 0000 Signed Impressions: Service Date/Time: Friday, February 10, 2017 21:56 - CONCLUSION: Chronic atrophic and small vessel ischemic changes without any evidence for acute hemorrhage or mass effect. MD Danita Graff VTE Risk Assessment Danita VTE Risk Assessment: No/Low Risk (score <= 1) Nelsoni Risk Assessment Model Point Value = 1 Point Value = 2 Point Value = 3 Point Value = 5 Age 41-60 Minor surgery BMI > 25 kg/m2 Swollen legs Varicose veins or History of unexplained or recurrent spontaneous Oral contraceptives or hormone replacement Sepsis (< 1 month) Serious lung disease, including pneumonia (< 1 month) Abnormal pulmonary function Acute myocardial infarction Congestive heart failure (< 1 month) History of inflammatory bowel disease Medical patient at bed rest Age 61-74 Arthroscopic surgery Major open surgery (> 45 min) Laparoscopic surgery (> 45 min) Malignancy Confined to bed (> 72 hours) Immobilizing plaster cast Central venous access Age >= 75 History of VTE Family history of VTE Factor V Leiden Prothrombin [id number] Lupus anticoagulant Anticardiolipin antibodies Elevated serum homocysteine Heparin-induced thrombocytopenia Other congenital or acquired thrombophilia Stroke (< 1 month) Elective arthroplasty Hip, pelvis, or leg fracture Acute spinal cord injury (< 1 month) Prophylaxis Regimen Total Risk Factor Score Risk Level Prophylaxis Regimen 0-1 Low Early ambulation 2 Moderate Order ONE of the following: *Sequential Compression Device (SCD) *Heparin 5000 units SQ BID 3-4 Higher Order ONE of the following medications: *Heparin 5000 units SQ TID *Enoxaparin/Lovenox 40 mg SQ daily (WT < 150 kg, CrCl > 30 mL/min) *Enoxaparin/Lovenox 30 mg SQ daily (WT < 150 kg, CrCl > 10-29 mL/min) *Enoxaparin/Lovenox 30 mg SQ BID (WT < 150 kg, CrCl > 30 mL/min) AND/OR *Sequential Compression Device (SCD) 5 or more Highest Order ONE of the following medications: *Heparin 5000 units SQ TID (Preferred with Epidurals) *Enoxaparin/Lovenox 40 mg SQ daily (WT < 150 kg, CrCl > 30 mL/min) *Enoxaparin/Lovenox 30 mg SQ daily (WT < 150 kg, CrCl > 10-29 mL/min) *Enoxaparin/Lovenox 30 mg SQ BID (WT < 150 kg, CrCl > 30 mL/min) AND *Sequential Compression Device (SCD) Assessment and Plan Assessment and Plan TIA/CVA - Status post TPA administration - Admit to neuro ICU - Neuro checks per unit protocol - Further management per urologist - MRI and CTA negative - PT and OT eval and treat as tolerated GERD - Omeprazole BPH - Tamsulosin DVT GI prophylaxis - Teds SCDs - Early aggressive mobilization - No pharmacological DVT prophylaxis 24 hours post TPA administration - Omeprazole Critical Care: The total critical care time was 35 minutes. Time to perform other separately billable procedures was not included in the critical care time. Allen Fletcher MD Feb 10, 2017 23:14
[2017-02-11] VITALS (10 sets, daily range): BP systolic 110–152; BP diastolic 59–80; PULSE 52–76; RESP 15–26; TEMP 97.9–98.8; O2SAT 92–97
[2017-02-11] MEDS ORDERED: RESP: ALBUTEROL 2.5 MG/IPRATROPIUM 0.5 MG NEB (PRN) INH
[2017-02-11] MEDS ORDERED: ONDANSETRON HCL 4 MG/2 ML VIAL IV PUSH PRN
[2017-02-11] MEDS ORDERED: SODIUM CHLORIDE 0.9% FLUSH 10 ML FLUSH IV FLUSH PRN
[2017-02-11] MEDS ORDERED: CHLORHEXIDINE GLUCONATE 2 % 1 PACK (2 CLOTHS) TOP PRN
[2017-02-11] MEDS ORDERED: BISACODYL 10 MG SUPP RECTAL PRN
[2017-02-11] MEDS ORDERED: MAGNESIUM HYDROXIDE SUSP 30 ML CUP PO PRN
[2017-02-11] MEDS ORDERED: ACETAMINOPHEN 325 MG TAB PO PRN
[2017-02-11] MEDS ORDERED: SENNOSIDES 8.6 MG TAB PO PRN
[2017-02-11] MEDS ORDERED: MISCELLANEOUS NURSING INFORMATION XX SCH
[2017-02-11] MEDS ORDERED: LACTULOSE SYRUP 20 GM/30 ML CUP PO PRN
[2017-02-11 03:01] LABS: HDL CHOLESTEROL 47.6 MG/DL (40.0-60.0); LDL CHOLESTEROL 106 MG/DL (0-99)
[2017-02-11] MEDS: CHLORHEXIDINE GLUCONATE 2 % 1 PACK (2 CLOTHS) TOP SCH ×2 (04:00→19:32)
[2017-02-11 04:31] LABS: AUTOMATED NEUTROPHIL # 3.8 TH/MM3 (1.8-7.7); BASOPHIL # 0.1 TH/MM3 (0-0.2); BASOPHIL % 1.1 % (0.0-2.0); EOSINOPHIL # 0.2 TH/MM3 (0-0.4); EOSINOPHIL % 2.5 % (0.0-4.0); HEMATOCRIT 42.6 % (39.0-51.0); HEMO FLAGS DIFF FINAL; LYMPH % 25.8 % (9.0-44.0); LYMPHOCYTE # 1.6 TH/MM3 (1.0-4.8); MEAN CELL VOLUME 90.6 FL (80.0-100.0); MEAN CORPUSCULAR HEMOGLOBIN 31.4 PG (27.0-34.0); MEAN CORPUSCULAR HGB CONC 34.6 % (32.0-36.0); MONO % 10.1 % (0.0-8.0); NEUT % 60.5 % (16.0-70.0); PLATELET COUNT 194 TH/MM3 (150-450); RED CELL DISTRIBUTION WIDTH 12.8 % (11.6-17.2); WHITE BLOOD COUNT 6.3 TH/MM3 (4.0-11.0)
[2017-02-11 04:52] LABS: ALT (GPT) 23 U/L (12-78)
[2017-02-11 04:54] LABS: ALKALINE PHOSPHATASE 57 U/L (45-117); TOTAL BILIRUBIN ADULT 0.7 MG/DL (0.2-1.0)
[2017-02-11 04:55] LABS: ANION GAP 7 MEQ/L (5-15); AST (GOT) 21 U/L (15-37); BICARBONATE 28.2 MEQ/L (21.0-32.0); BLOOD UREA NITROGEN 12 MG/DL (7-18); CHLORIDE 107 MEQ/L (98-107); GLOMERULAR FILTRATION RATE 116 ML/MIN (>89); POTASSIUM 3.7 MEQ/L (3.5-5.1); SODIUM (NA) 142 MEQ/L (136-145)
[2017-02-11] MEDS: DOCUSATE SODIUM 50 MG/SENNA 8.6 MG TAB PO SCH ×2 (08:58→20:09)
[2017-02-11] MEDS: SODIUM CHLORIDE 0.9% FLUSH 10 ML FLUSH IV FLUSH SCH ×2 (08:59→20:10)
[2017-02-11] MEDS: PANTOPRAZOLE SOD 20 MG DELAYED RELEASE TAB PO SCH (08:59)
[2017-02-11] MEDS ORDERED: ASPIRIN 81 MG CHEW TAB CHEW SCH (09:00)
[2017-02-11] MEDS ORDERED: MORPHINE SULFATE 4 MG/ML INJ IV PUSH PRN (13:30)
[2017-02-11] MEDS ORDERED: MORPHINE SULFATE 2 MG/ML INJ IV PUSH PRN (13:30)
--- NOTE | 2017-02-11 14:03 | EKG ---
Date Performed: 02/10/2017 Time Performed: 19:04:48 PTAGE: 81 years EKG: SINUS BRADYCARDIA WITH SINUS ARRHYTHMIA BORDERLINE ECG NO PREVIOUS TRACING DOCTOR: Sae Rai Interpretating Date/Time 02/11/2017 13:56:54
--- NOTE | 2017-02-11 14:31 | RADRPT ---
EXAM DATE/TIME: 02/11/2017 13:49 [facility] COMPARISON: No previous studies available for comparison. INDICATIONS : Hematuria and pain when urinating. MEDICAL HISTORY : Gastroesophageal reflux disease. Hiatis hernia. Enlarged prostate. Kidney stones. Esophahus cance r. SURGICAL HISTORY : Right knee surgery. Polyps removed. Cataracts. ENCOUNTER: Initial ACUITY: 1 day PAIN SCORE: 0/10 LOCATION: Bilateral flank. MEASUREMENTS: RIGHT KIDNEY: 11.4 x 5.1 x 6.3 cm LEFT KIDNEY: 13.2 x 4.9 x 5.9 cm FINDINGS: RIGHT KIDNEY: Renal cortex is normal in thickness and echotexture. No hydronephrosis, stone, or mass. LEFT KIDNEY: Renal cortex is normal in thickness and echotexture. No hydronephrosis, stone, or mass. 2 simple cys ts are observed. These measure 5.2 cm laterally within the midpole and 4.5 cm medially within the mid to upper pole. BLADDER: Totally decompressed and contains a Page balloon. CONCLUSION: 1. 2 simple cysts involving the left kidney. 2. Urinary bladder decompressed and not well evaluated. Jose Benitez Jr., MD on February 11, 2017 at 14:27 Board Certified Radiologist. This report was verified electronically.
[2017-02-11 15:30] LABS: HEMOGLOBIN Ao 85.6 %; HEMOGLOBIN F 0.9 %; HEMOGLOBIN LA1C 1.8 %; HEMOGLOBIN P3 3.7 %
--- NOTE | 2017-02-11 15:35 | HHI.CCPN ---
Subjective Remarks/Hospital Course 81 year-old right-handed male presented to emergency department at [facility] via private vehicle for altered mental status. The patient was just recently seen in the emergency department for urinary obstruction and had a Page catheter placed, was discharged home alert and oriented 3. The patient's the patient got in the car and while they were driving home he suddenly became confused. The states that the patient cannot recall why he was in the emergency department are why he had a Page catheter placed. The brought the patient back to the emergency department. Upon arrival he kept asking "am I having a stroke ", however, denied any other physical complaints except for his memory. The patient denies any weakness or numbness of the upper or lower extremities. He denies any dysarthria. The patient does have a history of GERD and benign prostatic hypertrophy. The patient did undergo an endoscopy earlier today by Dr. Combs. The patient denies any chest pain, shortness breath, nausea, vomiting, or abdominal pain. The patient was discharged at 6 PM, onset of symptoms were just after 6 PM. Patient was evaluated by a neurologist on: Decision was made to treat patient with the TPA infusion. 02/11: Alert, cooperative. BP control acceptable. Objective Vital Signs Date Time Temp Pulse Resp B/P (MAP) Pulse Ox O2 Delivery O2 Flow Rate FiO2 02/11/17 08:10 92 Nasal Cannula 3.50 02/11/17 08:00 53 02/11/17 08:00 97.9 18 132/71 (91) Intake and Output 02/11/17 02/11/17 02/12/17 08:00 16:00 00:00 Intake Total 100 ml Output Total 800 ml Balance -700 ml Result Diagram: 02/11/17 0415 02/11/17 0415 Imaging Last 24 hours Impressions Neck CTA 02/10/171830 Signed Impressions: Service Date/Time: Friday, February 10, 2017 18:34 - CONCLUSION: Unremarkable study without any significant stenosis. Pedro Peralta MD Head CTA 02/10/171830 Signed Impressions: Service Date/Time: Friday, February 10, 2017 18:34 - CONCLUSION: Unremarkable study. Pedro Peralta MD Head CT 02/10/17 0000 Signed Impressions: Service Date/Time: Friday, February 10, 2017 18:34 - CONCLUSION: Unremarkable study. Pedro Peralta MD Chest X-Ray 02/10/17 0000 Signed Impressions: Service Date/Time: Friday, February 10, 2017 18:59 - CONCLUSION: Mild case of chronic interstitial process. Pedro Peralta MD Brain MRI 02/10/17 0000 Signed Impressions: Service Date/Time: Friday, February 10, 2017 21:56 - CONCLUSION: Chronic atrophic and small vessel ischemic changes without any evidence for acute hemorrhage or mass effect. Pedro Peralta MD Objective Remarks GENERAL: Well-nourished, well-developed patient. SKIN: Warm and dry. HEAD: Normocephalic. EYES: No scleral icterus. No injection or drainage. NECK: Supple, trachea midline. Airway patent. CARDIOVASCULAR: Regular rate and rhythm without murmurs, gallops, or rubs. No JVD. RESPIRATORY: Breath sounds equal bilaterally. Clear. GASTROINTESTINAL: Abdomen soft, non-tender, nondistended. BS active. MUSCULOSKELETAL: No cyanosis, or edema. Well perfused. NEURO EXAM: GCS: M 6 V 5 E 4. The patient is alert and oriented to person, place, and time with normal speech. Cranial Nerves: Visual acuity intact bilaterally. Visual garza normal in all quadrants. Pupils are round, reactive to light. Extraocular movements are intact without ptosis. Hearing is normal bilaterally. Voice is normal. Tongue protrudes midline and moves symmetrically. Motor: Good muscle tone. Strength is 5/5 bilaterally. A/P Assessment and Plan TIA/CVA - Status post TPA administration - Admit to neuro ICU - Neuro checks per unit protocol - Further management per urologist - MRI and CTA negative - PT and OT eval and treat as tolerated - Swallow eval. GERD - Omeprazole BPH - Tamsulosin DVT GI prophylaxis - Teds SCDs - Early aggressive mobilization - No pharmacological DVT prophylaxis 24 hours post TPA administration - Omeprazole Overall impression: Stable respiratory and hemodynamic function. Inder Roberson MD Feb 11, 2017 15:35
--- NOTE | 2017-02-11 16:08 | HHI.PR ---
Subjective Remarks Patient complained of dysuria earlier today he has a Page catheter, he stated he had a kidney stone in 1990 Currently he is passing urine through the Page catheter I encouraged him to drink water He is on Flomax for BPH D/W nurse Objective Vitals Vital Signs Date Time Temp Pulse Resp B/P (MAP) Pulse Ox O2 Delivery O2 Flow Rate FiO2 02/11/17 08:10 92 Nasal Cannula 3.50 02/11/17 08:00 53 02/11/17 08:00 94 Nasal Cannula 2.00 02/11/17 08:00 97.9 52 18 132/71 (91) 94 02/11/17 08:00 53 02/11/17 04:00 98.0 52 15 119/63 (81) 93 02/11/17 03:00 94 Nasal Cannula 4.00 02/11/17 00:00 60 02/11/17 00:00 98.2 60 25 152/80 (104) 95 02/10/17 23:00 90 Nasal Cannula 2.00 02/10/17 23:00 57 02/10/17 23:00 98.2 57 21 181/90 (120) 94 02/10/17 22:25 63 20 165/84 (111) 98 02/10/17 22:05 63 20 172/91 (118) 99 Nasal Cannula 2.00 02/10/17 21:05 56 20 169/84 (112) 99 2.00 02/10/17 20:05 58 20 158/79 (105) 99 Nasal Cannula 2.00 02/10/17 20:00 58 20 98 Nasal Cannula 2.00 02/10/17 19:32 56 20 179/79 (112) 99 2.00 02/10/17 19:02 58 20 167/87 (113) 98 Nasal Cannula 2.00 02/10/17 18:39 Nasal Cannula 2.00 02/10/17 18:39 96 02/10/17 18:30 96 Nasal Cannula 2.00 02/10/17 18:30 96 2.00 02/10/17 18:23 97.8 60 20 172/91 (118) 97 I/O 02/10/17 02/10/17 02/10/17 02/11/17 02/11/17 02/11/17 07:00 15:00 23:00 07:00 15:00 23:00 Intake Total 1181 ml 100 ml Output Total 1400 ml 800 ml Balance -219 ml -700 ml Intake Oral 100 ml IV Total 1181 ml Output Urine Total 1400 ml 800 ml # Voids 2 Result Diagram: 02/11/1741402/11/17414 Objective Remarks GENERAL: This is a well-nourished, well-developed patient, in no apparent distress. SKIN: No rashes, warm and dry HEAD: Atraumatic. Normocephalic. EYES: Pupils equal round and reactive. Extraocular motions intact. No scleral icterus. ENT: Nose without bleeding, or drainage, Airway patent. NECK: Trachea midline. Supple CARDIOVASCULAR: Regular rate and rhythm without murmurs, gallops, or rubs. RESPIRATORY: Fair air entry bilaterally. No wheezes, rales, or rhonchi. GASTROINTESTINAL: Abdomen soft, non-tender, nondistended. Positive bowel sounds MUSCULOSKELETAL: Extremities without clubbing, cyanosis, or edema. Pedal pulses appreciated NEUROLOGICAL: Awake and alert. Moves all extremity. Normal speech.no focal neurological deficit A/P Assessment and Plan TIA/CVA - Status post TPA administration -Patient in ICU, neurology following - Neuro checks and swallow eval per unit protocol - Further management per urologist - MRI and CTA negative - PT and OT eval and treat as tolerated [facility]y GERD - Omeprazole BPH - Tamsulosin Dysuria with microscopic hematuria -Continue Page catheter, continue Flomax, possible urethral spasm due to Page catheter DVT GI prophylaxis - Teds SCDs - Early aggressive mobilization - No pharmacological DVT prophylaxis 24 hours post TPA administration - Omeprazole Luis Carlos Ta MD Feb 11, 2017 16:08
[2017-02-11] MEDS ORDERED: SODIUM CHLOR 0.9% 1000 ML INJ 1,000 ML IV ONE (17:45)
[2017-02-11] MEDS ORDERED: MORPHINE SULFATE 4 MG/ML INJ IV PRN (18:30)
[2017-02-11] MEDS: TAMSULOSIN HCL 0.4 MG CAP PO SCH (18:35)
--- NOTE | 2017-02-11 20:46 | RADRPT ---
EXAM DATE/TIME: 02/11/2017 20:26 [place] COMPARISON: CT BRAIN W/O CONTRAST, February 10, 2017, 18:34. INDICATIONS : F/U stroke alert, post TPA. RADIATION DOSE: 56.46 CTDIvol (mGy) MEDICAL HISTORY : Hernia, hiatal. Renal calculi. Stroke. SURGICAL HISTORY : None. ENCOUNTER: Subsequent ACUITY: 2 days PAIN SCALE: 0/10 LOCATION: cranial TECHNIQUE: Multiple contiguous axial images were obtained of the head. Using automated exposure control and adj ustment of the mA and/or kV according to patient size, radiation dose was kept as low as reasonably a chievable to obtain optimal diagnostic quality images. DICOM format image data is available electro nically for review and comparison. FINDINGS: CEREBRUM: The ventricles are normal for age. No evidence of midline shift, mass lesion, hemorrhage or acute in farction. No extra-axial fluid collections are seen. POSTERIOR FOSSA: The cerebellum and brainstem are intact. The 4th ventricle is midline. The cerebellopontine angle i s unremarkable. EXTRACRANIAL: The visualized portion of the orbits is intact. SKULL: The calvaria is intact. No evidence of skull fracture. CONCLUSION: Normal examination. No significant change has occurred. Quinton Pryor MD on February 11, 2017 at 20:44 Board Certified Radiologist. This report was verified electronically.
[2017-02-11] MEDS ORDERED: ATORVASTATIN 40 MG TAB PO SCH (21:00)
--- NOTE | 2017-02-11 21:21 | MG ---
cc: LUDA LOERA MD Lab No: Date: 02/11/2017 Age: Sex: M Race: DATE OF [address] Urbina[address] INDICATION medical condition stroke alert, status post TPA, status confusion. MEDICATIONS 1. Aspirin. 2. Protonix. DESCRIPTION The background activity is 8-9 Hz alpha located posteriorly with a posterior to anterior gradient. Hyperventilation was not done. Photic stimulation did elicit a symmetrical driving response. The EEG recording is contaminated with muscle and eye blink artifact. There were no electrographic seizures or epileptiform discharges noted. INTERPRETATION This is a normal awake EEG. Absence of electrographic seizures or epileptiform discharges does not rule out diagnosis of epilepsy. Clinical correlation is recommended. Luda Loera MD RGO/KK /9:01 PM /9:13 PM [facility]
--- NOTE | 2017-02-11 21:34 | HHI.PR ---
Addendum to Inpatient Note Addendum Reason: Additional Documentation Additional Information Pts called concerned and wanting me to see him in the hospital. I explained why I'm using the hospitalist but reassured her to all that is going on. Her concern was that he is still having some memory lapses and I explained that may be the case for a little while but should hopefully improve with time, controlling risk factors (BP controlled, now on statin). He hasn't had HTN in the past. The other issue is urinary retention. He had previously seen Dr. Prasad but didn't want to go back. When I saw him in November, he was having nocturia x4-5 and trouble emptying bladder (not taking benedryl or other OTC meds that would contribute). He was taking proscar 5mg per day at that time. I encouraged him to stay on that and start on tamsulosin 2mg QHS. His tells me now that he wasn't using either of the meds regularly. With known BPH, not taking meds regularly, and ongoing symptoms for several months, acute urinary retention after anesthesia for upper endoscopy isn't all that surprising. We discussed need to stay on meds regularly or he may need to consider TURP or other procedures. Right now he has a catheter in. I would suggest having him follow with Dr. Garcia or Dr. Yuen in/out of office and advised he may need the catheter until the meds start working if they are unable to get the catheter out prior to discharge. No sign of infection. I advised if he is discharged this week/weekend as I suspect he will, I would like to see him in the office next week. Encouraged to continue the statin at discharge. Danika Bonilla MD Feb 11, 2017 21:33
[2017-02-12 00:25] VITALS: BP 167/82; PULSE 65; RESP 18; TEMP 98.2; O2SAT 97
[2017-02-12 05:30] VITALS: BP 139/66; PULSE 63; RESP 18; TEMP 98.3; O2SAT 95
[2017-02-12 08:00] VITALS: BP 132/70; PULSE 59; RESP 18; TEMP 97.7; O2SAT 95
[2017-02-12 08:03] VITALS: PULSE 53
[2017-02-12] MEDS: TAMSULOSIN HCL 0.4 MG CAP PO SCH (08:38)
[2017-02-12] MEDS: PANTOPRAZOLE SOD 20 MG DELAYED RELEASE TAB PO SCH (08:39)
[2017-02-12] MEDS: DOCUSATE SODIUM 50 MG/SENNA 8.6 MG TAB PO SCH (08:39)
[2017-02-12] MEDS: SODIUM CHLORIDE 0.9% FLUSH 10 ML FLUSH IV FLUSH SCH (08:39)
[2017-02-12 12:00] VITALS: BP 131/64; PULSE 72; RESP 18; TEMP 97.6; O2SAT 94
--- NOTE | 2017-02-12 12:52 | ECHRPT ---
Indication: cva/tia CONCLUSIONS Normal left ventricular size. Wall thickness is normal. The left ventricular systolic function is low normal with an estimated ejection fraction in the rang e of 50- 55%. Mitral annular calcification is present. There is a small pericardial effusion present. No hemodynamically significant echocardiographic features were observed (no pre-tamponade physiology). BP: 119 / 63 HR: 52 Rhythm: MEASUREMENTS (Male / Female) Normal Values Technical Quality: 2D ECHO LV Diastolic Diameter PLAX 5.1 cm 4.2 - 5.9 / 3.9 - 5.3 cm LV Systolic Diameter PLAX 4.0 cm IVS Diastolic Thickness 1.1 cm 0.6 - 1.0 / 0.6 - 0.9 cm LVPW Diastolic Thickness 0.8 cm 0.6 - 1.0 / 0.6 - 0.9 cm LV Relative Wall Thickness 0.4 LA Systolic Diameter LX 3.5 cm 3.0 - 4.0 / 2.7 - 3.8 cm M-MODE Aortic Root Diameter MM 3.6 cm AV Cusp Separation MM 2.3 cm DOPPLER MR Peak Velocity 314.0 cm/s MR Peak Gradient 39.4 mmHg Mitral E Point Velocity 56.3 cm/s Mitral A Point Velocity 75.5 cm/s Mitral E to A Ratio 0.7 LV E' Lateral Velocity 8.9 cm/s Mitral E to LV E' Lateral Ratio 6.3 LV E' Septal Velocity 6.2 cm/s Mitral E to LV E' Septal Ratio 9.0 TR Peak Velocity 210.0 cm/s TR Peak Gradient 17.6 mmHg Right Atrial Pressure 10.0 mmHg Pulmonary Artery Systolic Pressu 27.6 mmHg Right Ventricular Systolic Press 27.6 mmHg FINDINGS LEFT VENTRICLE Normal left ventricular size. Wall thickness is normal. The left ventricular systolic function is low normal with an estimated ejection fraction in the rang e of 50- 55%. RIGHT VENTRICLE Normal right ventricular size and systolic function. LEFT ATRIUM The left atrial size is normal. RIGHT ATRIUM The right atrial size is normal. ATRIAL SEPTUM Normal atrial septal thickness without atrial level shunting by limited color doppler interrogation. AORTA The aortic root and proximal ascending aorta are normal in size on limited imaging. MITRAL VALVE Mitral annular calcification is present. AORTIC VALVE Trileaflet aortic valve. No aortic valve stenosis or regurgitation. TRICUSPID VALVE Structurally normal tricuspid valve. No tricuspid valve stenosis or regurgitation. PULMONARY VALVE No pulmonary valve regurgitation or stenosis. VESSELS The inferior vena cava is normal in size. PERICARDIUM There is a small pericardial effusion present. No hemodynamically significant echocardiographic features were observed (no pre-tamponade physiology). Sae Rai MD, FACC (Electronically Signed) Final Date:12 February 2017 12:50
[2017-02-12] MEDS ORDERED: ATOR40TA16 PO (14:41)
[2017-02-12] MEDS ORDERED: PLAV75TA29 PO (14:43)
[2017-02-12] MEDS ORDERED: AMLO5 PO (14:43)
[2017-02-12] MEDS ORDERED: CLOPIDOGREL 75 MG TAB PO SCH (14:45)
[2017-02-12] MEDS ORDERED: amLODIPine BESYLATE 5 MG TAB PO PRN (14:45)
--- NOTE | 2017-02-12 14:51 | HHI.PR ---
Subjective Remarks Pleasant patient laying in bed denied any acute complain, at the bedside the patient call Dr. Fierro who came to see the patient last night Patient told me when they took out the Page because of the leakage he felt much better and he was able to void however for some reason that Page was reinserted again I discussed with him and his and explained that the patient would need to go back on his Flomax possibly use Proscar and follow up with his urologist sooner after discharge, will assess his voiding if we need to keep the Page and discharge him with that we will do. The and the patient showed a understanding Objective Vitals Vital Signs Date Time Temp Pulse Resp B/P (MAP) Pulse Ox O2 Delivery O2 Flow Rate FiO2 02/12/17 12:00 97.6 72 18 131/64 (86) 94 02/12/17 08:03 53 02/12/17 08:00 97.7 59 18 132/70 (90) 95 02/12/17 08:00 95 2.00 02/12/17 05:30 98.3 63 18 139/66 (90) 95 02/12/17 00:25 98.2 65 18 167/82 (110) 97 02/11/17 23:49 95 Room Air 02/11/17 22:14 64 02/11/17 20:30 98.1 68 20 126/67 (86) 95 02/11/17 19:27 Nasal Cannula 2.00 02/11/17 16:00 58 02/11/17 16:00 98.8 58 16 112/61 (78) 97 I/O 02/11/17 02/11/17 02/11/17 02/12/17 02/12/17 02/12/17 06:59 14:59 22:59 06:59 14:59 22:59 Intake Total 1200 ml 240 ml Output Total 800 ml 300 ml Balance 400 ml 240 ml -300 ml Intake Oral 100 ml 240 ml IV Total 1100 ml Output Urine Total 800 ml 300 ml # Bowel Movements 1 Result Diagram: 02/11/1741402/11/17414 Objective Remarks GENERAL: This is a well-nourished, well-developed patient, in no apparent distress. SKIN: No rashes, warm and dry HEAD: Atraumatic. Normocephalic. EYES: Pupils equal round and reactive. Extraocular motions intact. No scleral icterus. ENT: Nose without bleeding, or drainage, Airway patent. NECK: Trachea midline. Supple CARDIOVASCULAR: Regular rate and rhythm without murmurs, gallops, or rubs. RESPIRATORY: Fair air entry bilaterally. No wheezes, rales, or rhonchi. GASTROINTESTINAL: Abdomen soft, non-tender, nondistended. Positive bowel sounds MUSCULOSKELETAL: Extremities without clubbing, cyanosis, or edema. Pedal pulses appreciated NEUROLOGICAL: Awake and alert. Moves all extremity. Normal speech.no focal neurological deficit A/P Assessment and Plan TIA/CVA - Status post TPA administration, blood pressure doesn't seem to be increased however I will place on patient on low dose Norvasc to be given only if systolic blood pressure above 140 Appreciate neurology consult, we placed a call discussed the recommendation for anticoagulation, recommended only Plavix and to follow up within 1 week - Further management per urologist - MRI and CTA negative - PT and OT eval and treat as tolerated [facility] by [facility]y GERD - Omeprazole BPH - Tamsulosin, add Proscar per PCP recommendation patient to follow up soon after discharge Dysuria with microscopic hematuria -Continue Page catheter, continue Flomax, possible urethral spasm due to Paeg catheter DVT GI prophylaxis - Teds SCDs - Early aggressive mobilization - No pharmacological DVT prophylaxis 24 hours post TPA administration - Omeprazole Luis Carlos Ta MD Feb 12, 2017 14:51
[2017-02-12] MEDS ORDERED: PILL SPLITTER OTHER PRN (15:00)
--- NOTE | 2017-02-12 15:58 | HHI.DS ---
Discharge Summary Admission Date Feb 10, 2017 at 19:39 Discharge Date: Feb 12, 2017 Admitting Diagnosis stroke alert, CVA, altered mental status (1) Altered mental status ICD Code: R41.82 - Altered mental status, unspecified Status: Acute (2) CVA (cerebral vascular accident) ICD Code: I63.9 - Cerebral infarction, unspecified Status: Acute (3) Acute memory impairment ICD Code: R41.3 - Other amnesia Status: Acute (4) BPH (benign prostatic hyperplasia) ICD Code: N40.0 - Benign prostatic hyperplasia without lower urinary tract symptoms Status: Chronic Procedures TPa administration Brief History - From Admission 81 year-old right-handed male presented to emergency department at [facility] via private vehicle for altered mental status. The patient was just recently seen in the emergency department for urinary obstruction and had a Page catheter placed, was discharged home alert and oriented 3. The patient's the patient got in the car and while they were driving home he suddenly became confused. The states that the patient cannot recall why he was in the emergency department are why he had a Page catheter placed. The brought the patient back to the emergency department. Upon arrival he kept asking "am I having a stroke ", however, denied any other physical complaints except for his memory. The patient denies any weakness or numbness of the upper or lower extremities. He denies any dysarthria. The patient does have a history of GERD and benign prostatic hypertrophy. The patient did undergo an endoscopy earlier today by Dr. Combs. The patient denies any chest pain, shortness breath, nausea, vomiting, or abdominal pain. The patient was discharged at 6 PM, onset of symptoms were just after 6 PM. Patient was evaluated by a neurologist on: Decision was made to treat patient with the TPA infusion. CBC/BMP: 02/11/17 0415 02/11/17 0415 Significant Findings Laboratory Tests Test 02/10/17 18:30 02/10/17 19:05 02/10/17 22:20 02/11/17 00:15 Activated Partial Thromboplast Time 30.3 SEC (24.3-30.1) Troponin I LESS THAN 0.02 NG/ML Urine Occult Blood LARGE (NEG) Urine RBC 4-9 /hpf (0-3) LDL Cholesterol 106 MG/DL (0-99) Test 02/11/17 04:15 Monocytes (%) (Auto) 10.1 % (0.0-8.0) Total Protein 6.3 GM/DL (6.4-8.2) Calcium Level 8.2 MG/DL (8.5-10.1) PE at Discharge GENERAL: This is a well-nourished, well-developed patient, in no apparent distress. SKIN: No rashes, warm and dry HEAD: Atraumatic. Normocephalic. EYES: Pupils equal round and reactive. Extraocular motions intact. No scleral icterus. ENT: Nose without bleeding, or drainage, Airway patent. NECK: Trachea midline. Supple CARDIOVASCULAR: Regular rate and rhythm without murmurs, gallops, or rubs. RESPIRATORY: Fair air entry bilaterally. No wheezes, rales, or rhonchi. GASTROINTESTINAL: Abdomen soft, non-tender, nondistended. Positive bowel sounds MUSCULOSKELETAL: Extremities without clubbing, cyanosis, or edema. Pedal pulses appreciated NEUROLOGICAL: Awake and alert. Moves all extremity. Normal speech.no focal neurological deficit Hospital Course TIA/CVA Status post TPA administration, neurology consulted Appreciate their help recommended only Plavix at discharge and to follow up within 1 week MRI and CTA negative PT and OT eval and treat BPH,Dysuria with microscopic hematuria Tamsulosin, add Proscar per PCP recommendation patient to follow up soon after discharge Status post Page catheter will do voiding trial today prior to discharge if still having retention will reinsert Page and discharge with a follow up with urology as an outpatient Lengthy discussion with the patient and his answering all their question explaining the plan post discharge Time spent 50 minutes Pt Condition on Discharge: Fair Discharge Disposition: Discharge Home Discharge Time: > 30 minutes Discharge Instructions DIET: Follow Instructions for: Heart Healthy Diet Speech Therapy-Diet Recommends: Regular Activities you can perform: Weight Bearing as Leslie Follow up Referrals: Neurology - 1 Week with Aris Urbina MD Urology - 1 Week with Pola Garcia DO New Medications: Amlodipine (Norvasc) 5 Mg Tab 2.5 MG PO DAILY PRN for if systolic BP>140, #30 TAB Atorvastatin (Atorvastatin) 40 Mg Tab 40 MG PO HS for tia, #30 TAB Clopidogrel (Plavix) 75 Mg Tab 75 MG PO DAILY for tia, #30 TAB Continued Medications: Omeprazole (Omeprazole) 20 Mg Tab 20 MG PO DAILY, #30 TAB 0 Refills Tamsulosin (Tamsulosin) 0.4 Mg Cap 0.4 MG PO HS for Manage Prostate Problems, #30 CAP 0 Refills Luis Carlos Ta MD Feb 12, 2017 15:58
[2017-02-12 16:15] VITALS: BP 152/75; PULSE 58; RESP 18; TEMP 98.1; O2SAT 94
== END 2017-02-12 18:23 | disposition home or self-care (01) | DRG 63 ==
LOC: PHED 18:17 → PHEDA 19:39 → N03A 23:03 → N05A 02-11 18:13
PROVIDERS: ADMIT Hospitalist; ATTEND Hospitalist
DX: I63.9 Cerebral infarction, unspecified (principal); K22.70 Barrett's esophagus without dysplasia; K21.9 Gastro-esophageal reflux disease without esophagitis; N40.1 Benign prostatic hyperplasia with lower urinary tract symptoms; Z87.442 Personal history of urinary calculi; R35.1 Nocturia
CPT/HCPCS: 70450; 70496; 70498; 70551; 71010; 76775; 80048; 80053; 80061; 80307; 81001; 82550; 82607; 83036; 83735; 84100; 84443; 84484; 85025; 85384; 85610; 85652; 85730; 86850; 86900; 86901; 87641; 93005; 93306; 95819; 96374; C9113; J2270; J2997; J7030; P9612; Q9967

== ENCOUNTER 2017-08-31 02:58 | Emergency (ER) | payer MEDICARE ==
[2017-08-31 03:51] LABS: BILIRUBIN, URINE NEG (NEG); BLOOD, URINE LARGE (NEG); GLUCOSE,URINE NEG (NEG); KETONE, URINE NEG (NEG); NITRITE,URINE NEG (NEG); URINE COLOR YELLOW (YELLW/STRAW); URINE LEUKOCYTE ESTERASE NEG (NEG)
[2017-08-31 03:58] LABS: COMMENT (UR) CULT NOT INDICATED; CULTURE IF INDICATED CULT NOT INDICATED; SQUAMOUS EPITHELIAL CELL URINE 0-5 /hpf (0-5); WBC, URINE 0-2 /hpf (0-5)
== END 2017-08-31 04:16 | disposition home or self-care (01) ==
LOC: PHED 02:58
DX: N40.1 Benign prostatic hyperplasia with lower urinary tract symptoms (principal); R33.9 Retention of urine, unspecified; K21.9 Gastro-esophageal reflux disease without esophagitis
CPT/HCPCS: 51702; 81001; 99283-25

== ENCOUNTER 2018-01-13 22:05 | Inpatient (IN) ==
[2018-01-13] MEDS ORDERED: Morphine Inj 4 MG/ML Vial IV.PUSH ONE (23:19)
[2018-01-13] MEDS ORDERED: Sodium Chlor 0.9% Inj 500 ML IV.SIG SCH (23:45)
[2018-01-13 23:46] LABS: Baso % (Auto) 0.1 % (0.0-2.0); Eos % (Auto) 0.1 % (0.0-4.0); Hematocrit 38.3 % (39.0-51.0); Hemoglobin 13.4 gm/dL (13.0-17.0); Lymph # (Auto) 0.4 th/mm3 (1.0-4.8); Lymph % (Auto) 3.7 % (9.0-44.0); Mean Corpuscular HGB Conc 35.1 % (32.0-36.0); Mean Corpuscular Hemoglobin 31.5 pg (27.0-34.0); Mean Corpuscular Volume 89.9 fL (80.0-100.0); Mean Platelet Volume 7.5 fL (7.0-11.0); Mono # (Auto) 1.2 th/mm3 (0.0-0.9); Mono % (Auto) 12.5 % (0.0-8.0); Neut # (Auto) 7.9 th/mm3 (1.8-7.7); Neut % (Auto) 83.6 % (16.0-70.0); Platelet Count 141 th/mm3 (150-450); Red Blood Count 4.26 mil/mm3 (4.50-5.90); Red Cell Distribution Width 15.9 % (11.6-17.2); White Blood Count 9.4 th/mm3 (4.0-11.0)
[2018-01-14 00:17] LABS: Calcium 8.3 mg/dL (8.5-10.1); Carbon Dioxide 23.4 meq/L (21.0-32.0); Potassium 3.6 meq/L (3.5-5.1)
[2018-01-14 02:50] LABS: Bacteria,Urine Occasional /hpf; Bilirubin,Urine Negative (Negative); Clarity,Urine Cloudy (Clear); Color,Urine Amber (Yellw/Straw); Glucose,Urine (UA) Negative (Negative); Leukocyte Esterase,Urine Small (Negative); Mucus,Urine Many /lpf (Occasional); Nitrite,Urine Positive (Negative); Specific Gravity,Urine 1.022 (1.002-1.035); Squamous Epithelial Cell,Urine 1 /hpf (0-5); Urobilinogen,Urine 4 or Greater mg/dL (Less than 2)
--- NOTE | 2018-01-14 03:03 | ED ---
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 Patient has suprapubic catheter. Patient is under the care of Dr. Grullon his urologist. Patient is being treated for prostate cancer. Patient was seen earlier today at 9 AM for severe bladder spasm had irrigation urinalysis specimen was collected was identified to have abnormal urinalysis for UTI patient responded well to bladder irrigation was sent to his radiation oncologist appointment and then returned at 12 noon for same bladder spasm complaint. Patient was reassessed and reassured even Pyridium and symptoms seem to dissipate patient now returns again for the third time for same complaint states at this time bladder spasms are intractable and he cannot tolerate the pain. Patient is unable to identify exacerbating or alleviating factors. Patient started the antibiotic as prescribed. Patient had no fever chills. Patient denies nausea or vomiting. No flank. Patient has not noticed any gross hematuria. Patient has had change in his urine out because of Pyridium. MD Complaint: other (Bladder pain bladder spasm) Onset (ago): hour(s) Location: abdomen Radiation: abdomen (Bladder) Severity: severe Severity scale (1-10): 8 Quality: stabbing and other Relieving factors: none and medication Exacerbating factors: none indwelling catheter Reports denies other symptoms Related Data Sexually active: No Home Medications Medication Instructions Recorded Confirmed aspirin [Aspir-81] 81 mg PO DAILY 10/27/17 01/13/18 atorvastatin 80 mg PO DAILY 10/27/17 01/13/18 finasteride [Proscar] 5 mg PO DAILY 10/27/17 01/13/18 omeprazole 20 mg PO DAILY 10/27/17 01/13/18 oxybutynin chloride 5 mg PO TID 10/27/17 01/13/18 tamsulosin 0.4 mg PO DAILY 10/27/17 01/13/18 Previous Rx's Medication Instructions Recorded ciprofloxacin HCl [Cipro] 500 mg PO BID #14 tab 01/13/18 ciprofloxacin HCl [Cipro] 500 mg PO Q12H 7 Days #14 tab 01/13/18 phenazopyridine [Pyridium] 200 mg PO BID 2 Days #4 tab 01/13/18 Allergies Allergy/AdvReac Type Severity Reaction Status Date / Time No Known Allergies Allergy Verified 01/13/18 22:08 Review of Systems ROS: all other systems reviewed are negative [facility] Medical History Medical History Achilles tendon avulsion (Acute) Barretts syndrome (Acute) Pneumothorax (Acute) Prostate cancer (Acute) Surgical History Surgical History S/P TURP (Acute) Social History Social History Substance History: No History of Abuse Second Hand Smoke Exposure: No Smoking Status: Never smoker How Often Do You Have a Drink Containing Alcohol: Never Recent Travel in [facility] within the Last 8 Weeks: No Recent Out of Country Travel within the Last 8 Weeks: No Immunization History Tetanus Immunization: >5 Years Hx Influenza Vaccine This Season: No Exam Narrative Exam Narrative: GENERAL: Well-nourished, well-developed patient. SKIN: Focused skin assessment warm/dry. HEAD: Normocephalic. EYES: No scleral icterus. No injection or drainage. NECK: Supple, trachea midline. No JVD or lymphadenopathy. CARDIOVASCULAR: Regular rate and rhythm without murmurs, gallops, or rubs. RESPIRATORY: Breath sounds equal bilaterally. No accessory muscle use. GASTROINTESTINAL: Abdomen soft, non-tender, nondistended. Indwelling suprapubic catheter no purulent drainage no urine drainage no blood at the insertion site no abnormalities no blood at meatus bilateral testicles descended, minimal suprapubic tenderness to palpation. Urine is noted in urinary catheter collection bag. MUSCULOSKELETAL: No cyanosis, or edema. BACK: Nontender without obvious deformity. No CVA tenderness. Course Initial Documented Vital Signs Temperature 99.8 F H 01/13/18 22:06 Pulse Rate 94 H 01/13/18 22:06 Respiratory Rate 18 01/13/18 22:06 Blood Pressure 177/80 H 01/13/18 22:06 Pulse Oximetry 99 01/13/18 22:06 Last Documented Vital Signs Temperature 97.8 F 01/14/18 08:00 Pulse Rate 81 01/14/18 08:00 Respiratory Rate 20 01/14/18 08:00 Blood Pressure 157/85 H 01/14/18 08:00 Pulse Oximetry 94 L 01/14/18 08:00 Discharge Plan Discharge Disposition Patient Disposition: 30 Still Patient Discharge Condition Condition: Stable Discharge Details Diagnosis: Painful bladder spasm, UTI (urinary tract infection), Hydronephrosis of left kidney Physicians Team ED Provider: Emiliana Mcconnell Primary Care Provider: Danika Fierro Attending Provider: Barbara Coleman Other Providers: Carlos Alberto Orlando Status ED Status: Admitted Observation Patient Discharge Information Discharge Date/Time: 01/14/18 05:48 Medical Decision Making MDM Narrative Medical decision making narrative: 82-year-old male with indwelling suprapubic catheter complaining of spasm and pain. Patient queried on [facility] last prescription for any pain medication or sedative was 08/2017 tramadol No. 30 no refills; patient with persistent spasm on Pyridium will provide prescription for Percocet 5/325 #4 total he is to use those as needed for pain greater than 5/10 in intensity patient has been instructed regarding the risk for increased fall impaired judgment delayed reaction time constipation and addiction to narcotics. Patient is is aware of risk and benefit of the medication. Patient is aware of limited number of dosages of medication administered and no refills. At 4:15 AM patient preparing to go home although some still intermittent bladder spasms and then increasing severe bladder spasm unable to tolerate pain additional IV morphine administered; call placed to medicine service for observation admission and pain management with recommendation for urology consult patient has been here for 3 visits to the emergency department for same complaint was ongoing severe bladder spasms does have a urinary tract infection is prescribed a Quinolone antibiotic; will obtain CT abdomen pelvis with contrast to further evaluate possible other causes of suprapubic pain and spasm bladder scan shows minimal urine patient catheter was flushed with minimal debris continues to produce urine into urinary collection bag. Patient's case discussed with on-call medicine service [facility] Dr Cooper for observation admission; CT abdomen and pelvis has been added At 7:[address] abdomen pelvis remarkable for hydronephrosis and hydroureter on the left this will be relayed to the admitting service Medical Screen Exam Complete: Yes Emergency Medical Condition: Yes Differential Diagnosis Differential Diagnosis: Bladder spasm, UTI, catheter malfunction Medical Records Medical records reviewed: Yes I reviewed the patient's medical records. Lab Data Lab results reviewed: Yes I reviewed the patient's lab results. Result diagrams: 01/13/18 23:25 01/13/18 23:25 Lab Results 01/13/18 01/13/18 01/14/18 Range/Units 23:25 23:25 02:35 WBC 9.4 (4.0-11.0) th/mm3 RBC 4.26 L (4.50-5.90) mil/mm3 Hgb 13.4 (13.0-17.0) gm/dL Hct 38.3 L (39.0-51.0) % MCV 89.9 (80.0-100.0) fL MCH 31.5 (27.0-34.0) pg MCHC 35.1 (32.0-36.0) % RDW 15.9 (11.6-17.2) % Plt Count 141 L (150-450) th/mm3 MPV 7.5 (7.0-11.0) fL Neut % (Auto) 83.6 H (16.0-70.0) % Lymph % (Auto) 3.7 L (9.0-44.0) % [place] % (Auto) 12.5 H (0.0-8.0) % Eos % (Auto) 0.1 (0.0-4.0) % Baso % (Auto) 0.1 (0.0-2.0) % Neut # (Auto) 7.9 H (1.8-7.7) th/mm3 Lymph # (Auto) 0.4 L (1.0-4.8) th/mm3 [place] # (Auto) 1.2 H (0.0-0.9) th/mm3 Eos # (Auto) 0.0 (0.0-0.4) th/mm3 Baso # (Auto) 0.0 (0.0-0.2) th/mm3 WBC Differential . Differential Comment Auto diff final Sodium 134 L (136-145) meq/L Potassium 3.6 (3.5-5.1) meq/L Chloride 99 (98-107) meq/L Carbon Dioxide 23.4 (21.0-32.0) meq/L Anion Gap 12 (5-15) meq/L BUN 22 H (7-18) mg/dL Creatinine 1.02 (0.60-1.30) mg/dL Estimated GFR 70 L (>89) mL/min Random Glucose 138 H (74-106) mg/dL Calcium 8.3 L (8.5-10.1) mg/dL Urine Color Betty (Yellw/Straw) Urine Clarity Cloudy H (Clear) Urine pH 5.0 (5.0-8.5) Ur Specific [place] 1.022 (1.002-1.035) Urine Protein 500 or greater (Neg-Trace) mg/dL Urine Glucose (UA) Negative (Negative) mg/dL Urine Ketones Negative (Negative) mg/dL Urine Occult Blood Moderate H (Negative) Urine Nitrate Positive H (Negative) Urine Bilirubin Negative (Negative) Urine Urobilinogen 4 or greater (Less than 2) mg/dL Ur Leukocyte Esterase Small H (Negative) Urine RBC 30 H (0-3) /hpf Urine WBC (0-5) /hpf Urine WBC Clumps Few H (None) Ur Squamous Epith Cells 1 (0-5) /hpf Urine Bacteria Occasional H (None) /hpf Urine Mucus Many H (Occasional) /lpf Ur Microscopic Review Not Reportable Imaging Data Radiologist's impression: Abdomen/Pelvis CT 01/14/18 04:21 CONCLUSION: 1. Hepatic and splenic cysts. Distended gallbladder with gallstones. These findings are unchanged. 2. Moderate left hydronephrosis and hydroureter presumably related to obstruction at the level of the ureterovesical junction.
[2018-01-14] MEDS ORDERED: Morphine Inj 4 MG/ML Vial IV.PUSH ONE ×2 (03:39→10:00)
[2018-01-14] MEDS ORDERED: Belladonna Alkaloid/Opium 60 MG Supp RECTAL ONE (04:24)
[2018-01-14] MEDS ORDERED: Bisacodyl 10 MG Supp RECTAL PRN (04:28)
[2018-01-14] MEDS ORDERED: Acetaminophen 325 MG Tablet PO PRN (04:28)
[2018-01-14] MEDS: Pantoprazole Sodium 20 MG DR Tablet PO SCH (08:10)
[2018-01-14] MEDS: Finasteride 5 MG Tablet PO SCH (08:10)
[2018-01-14] MEDS: Senna/Docusate Sodium 8.6/50 MG Tablet PO SCH ×2 (08:11→20:15)
[2018-01-14] MEDS ORDERED: Naloxone Inj 0.4 MG/ML Vial IV.PUSH PRN (09:16)
[2018-01-14] MEDS: Morphine Inj 4 MG/ML Vial IV.PUSH PRN ×4 (14:13→23:22)
[2018-01-14] MEDS: Sod Chloride 0.9% Inj 1,000 ML IV.CONT SCH ×2 (16:28→23:22)
[2018-01-15] MEDS: Sod Chloride 0.9% Inj 1,000 ML IV.CONT SCH ×3 (02:41→23:17)
[2018-01-15] MEDS: Morphine Inj 4 MG/ML Vial IV.PUSH PRN ×4 (03:19→21:46)
[2018-01-15 07:16] LABS: Baso % (Auto) 0.4 % (0.0-2.0); Eos # (Auto) 0.3 th/mm3 (0.0-0.4); Eos % (Auto) 4.8 % (0.0-4.0); Hemoglobin 12.2 gm/dL (13.0-17.0); Lymph # (Auto) 0.4 th/mm3 (1.0-4.8); Mean Corpuscular HGB Conc 34.8 % (32.0-36.0); Mean Corpuscular Hemoglobin 31.6 pg (27.0-34.0); Mean Corpuscular Volume 90.8 fL (80.0-100.0); Mean Platelet Volume 7.1 fL (7.0-11.0); Mono % (Auto) 17.8 % (0.0-8.0); Neut # (Auto) 3.8 th/mm3 (1.8-7.7); Platelet Count 148 th/mm3 (150-450); Red Blood Count 3.86 mil/mm3 (4.50-5.90); Red Cell Distribution Width 15.5 % (11.6-17.2); White Blood Count 5.5 th/mm3 (4.0-11.0)
[2018-01-15 07:31] LABS: Calcium 8.2 mg/dL (8.5-10.1); Carbon Dioxide 26.3 meq/L (21.0-32.0); Potassium 3.6 meq/L (3.5-5.1)
[2018-01-15] MEDS: Finasteride 5 MG Tablet PO SCH (08:07)
[2018-01-15] MEDS: Pantoprazole Sodium 20 MG DR Tablet PO SCH (08:08)
[2018-01-15] MEDS: Senna/Docusate Sodium 8.6/50 MG Tablet PO SCH ×3 (08:08→23:18)
[2018-01-15] MEDS ORDERED: HYDROmorphone PF Inj 2 MG/ML Vial ONE (13:07)
[2018-01-15] MEDS ORDERED: Iohexol 350 MG/ML 50 ML Vial (for Rad Diag) IVCONTRAST ONE (13:49)
[2018-01-15] MEDS: Ciprofloxacin 400 MG/200 ML 400 MG/200 ML PIGGYBACK IV.SIG SCH ×2 (17:42→23:29)
[2018-01-15] MEDS ORDERED: Belladonna Alkaloid/Opium 60 MG Supp RECTAL PRN (18:27)
[2018-01-15] MEDS: Lactobacillus Acidophilus/L. Spores Tablet PO SCH ×2 (19:26→23:17)
[2018-01-16] MEDS: Morphine Inj 4 MG/ML Vial IV.PUSH PRN ×2 (01:11→11:26)
[2018-01-16 05:51] LABS: Baso % (Auto) 0.6 % (0.0-2.0); Eos # (Auto) 0.2 th/mm3 (0.0-0.4); Eos % (Auto) 3.3 % (0.0-4.0); Hematocrit 33.5 % (39.0-51.0); Hemoglobin 11.6 gm/dL (13.0-17.0); Lymph # (Auto) 0.3 th/mm3 (1.0-4.8); Lymph % (Auto) 7.3 % (9.0-44.0); Mean Corpuscular HGB Conc 34.7 % (32.0-36.0); Mean Corpuscular Hemoglobin 31.4 pg (27.0-34.0); Mean Corpuscular Volume 90.3 fL (80.0-100.0); Mean Platelet Volume 7.2 fL (7.0-11.0); Mono # (Auto) 0.8 th/mm3 (0.0-0.9); Mono % (Auto) 17.1 % (0.0-8.0); Neut # (Auto) 3.4 th/mm3 (1.8-7.7); Neut % (Auto) 71.7 % (16.0-70.0); Platelet Count 165 th/mm3 (150-450); Red Blood Count 3.71 mil/mm3 (4.50-5.90); Red Cell Distribution Width 15.7 % (11.6-17.2); White Blood Count 4.7 th/mm3 (4.0-11.0)
[2018-01-16] MEDS: Sod Chloride 0.9% Inj 1,000 ML IV.CONT SCH (06:06)
[2018-01-16 06:09] LABS: Calcium 7.6 mg/dL (8.5-10.1); Carbon Dioxide 25.5 meq/L (21.0-32.0); Potassium 3.3 meq/L (3.5-5.1)
[2018-01-16] MEDS: Ciprofloxacin 400 MG/200 ML 400 MG/200 ML PIGGYBACK IV.SIG SCH (08:45)
[2018-01-16] MEDS: Pantoprazole Sodium 20 MG DR Tablet PO SCH (08:47)
[2018-01-16] MEDS: Senna/Docusate Sodium 8.6/50 MG Tablet PO SCH (08:47)
[2018-01-16] MEDS: Lactobacillus Acidophilus/L. Spores Tablet PO SCH (08:48)
[2018-01-16] MEDS: Finasteride 5 MG Tablet PO SCH (08:48)
== END 2018-01-16 15:53 | disposition home health service (06) ==
LOC: NEDA 22:05 → NEPC 22:05 → NEDA 01-14 05:48 → NEPHCDU 01-14 05:57 → N07 01-15 13:56
PROVIDERS: ADMIT Internal Medicine; ATTEND Internal Medicine
DX: N32.89 Other specified disorders of bladder; B96.89 Other specified bacterial agents as the cause of diseases classified elsewhere; Z79.82 Long term (current) use of aspirin; Z79.899 Other long term (current) drug therapy; E78.5 Hyperlipidemia, unspecified; I10 Essential (primary) hypertension; B96.5 Pseudomonas (aeruginosa) (mallei) (pseudomallei) as the cause of diseases classified elsewhere; Z90.79 Acquired absence of other genital organ(s); N48.89 Other specified disorders of penis; N30.40 Irradiation cystitis without hematuria; N13.6 Pyonephrosis; Z92.3 Personal history of irradiation; T83.198A Other mechanical complication of other urinary devices and implants, initial encounter; K22.70 Barrett's esophagus without dysplasia; B96.1 Klebsiella pneumoniae [K. pneumoniae] as the cause of diseases classified elsewhere; Y84.2 Radiological procedure and radiotherapy as the cause of abnormal reaction of the patient, or of later complication, without mention of misadventure at the time of the procedure; Z92.21 Personal history of antineoplastic chemotherapy; Z85.46 Personal history of malignant neoplasm of prostate; C61 Malignant neoplasm of prostate